=== PATIENT | male | born 1950 | race Caucasian/White ===

== ENCOUNTER 2019-10-31 00:35 | Emergency (ER) | payer MEDICARE ==
--- NOTE | 2019-10-31 01:26 | ER Document Report ---
ED Respiratory Problem - General Chief Complaint: Cough Stated Complaint: COUGH,FEVER Time Seen by Provider: 10/31/19 01:13 Primary Care Provider: EDGARDO TERRELL FNP [NURSE PRACTITIONER] - Follow up as needed Notes: CHIEF COMPLAINT: Cough and fever HPI: 68-year-old diabetic male with history of arthritis who is on prednisone daily for his arthritis presenting for cough and fever. Patient has had a cough for almost 2 weeks. States that he had a negative COVID test 1.5 weeks ago. Patient states that his PCP did put him on Zithromax and he is on day 5 today of that medication. Patient spiked a fever up to 101 tonight at home. States his blood sugar has been elevated throughout the week but he attributes that to his prednisone use. No chest pain. No shortness of breath tonight. ROS: See HPI - all other systems were reviewed and are otherwise negative Constitutional: no fever Eyes: no drainage, no blurred vision ENT: no runny nose, no sore throat Cardiovascular: no chest pain Resp: no SOB, + cough GI: no vomiting, no diarrhea, no abdominal pain : no dysuria Integumentary: no rash Allergy: no hives Musculoskeletal: no extremity pain or swelling Neurological: no numbness/tingling, no weakness MEDICATIONS: I agree with the patient medications as charted by the RN. ALLERGIES: I agree with the allergies as charted by the RN. PAST MEDICAL HISTORY/PAST SURGICAL HISTORY: Reviewed and agree as charted by RN. SOCIAL HISTORY: Reviewed and agree as charted by RN. FAMILY HISTORY: No significant familial comorbid conditions directly related to patient complaint EXAM: Reviewed vital signs as charted by RN. CONSTITUTIONAL: Alert and oriented and responds appropriately to questions. Well-appearing; well-nourished HEAD: Normocephalic; atraumatic EYES: PERRL; Conjunctivae clear, sclerae non-icteric ENT: normal nose; no rhinorrhea; moist mucous membranes; pharynx without lesions noted, no uvula edema or deviation, no tonsillar hypertrophy, phonation normal NECK: Supple without meningismus; non-tender; no cervical lymphadenopathy, no masses CARD: RRR; no murmurs, no clicks, no rubs, no gallops; symmetric distal pulses RESP: Normal chest excursion without splinting or tachypnea; breath sounds clear but decreased in the right posterior base; no wheezes, no rhonchi, no rales, pulse oximetry 95% on room air not hypoxic ABD/GI: Normal bowel sounds; non-distended; soft, non-tender, no rebound, no guarding; no palpable organomegaly or masses. BACK: The back appears normal and is non-tender to palpation, there is no CVA tenderness EXT: Normal ROM in all joints; non-tender to palpation; no cyanosis, no effusions, no edema SKIN: Normal color for age and race; warm; dry; good turgor; no acute lesions noted NEURO: Moves all extremities equally; Motor and sensory function intact PSYCH: The patient's mood and manner are appropriate. Grooming and personal hygiene are appropriate. MDM: 68-year-old male with cough for 2 weeks. Negative COVID test 1.5 weeks ago per the patient he is not sure if he was tested for influenza. Has no chest pain or shortness of breath but states he had a fever of 101 tonight at home despite being on antibiotics. Will obtain chest x-ray basic screening labs including blood culture. Will obtain influenza swab TRAVEL OUTSIDE OF THE [place] IN LAST 30 DAYS: No - Related Data Allergies/Adverse Reactions: No Known Allergies Allergy (Verified 12/12/15 09:51) Home Medications: Metformin 1000mg BID. Methotrexate 2.5 mg 1 tab 6 tabs/wk. Azithromycin 500mg BID 10/25/19. Glipizide 5mg BID. Lisinopril 5mg dailyPrednisone 5mg daily-Arthritis. Pioglitazone 30mg daily. Protonix 40mg daily. Atorvstatin Past Medical History - Social History Smoking Status: Never Smoker Chew tobacco use (# tins/day): No Frequency of alcohol use: None Drug Abuse: None Family History: Reviewed & Not Pertinent Patient has homicidal ideation: No - Past Medical History Cardiac Medical History: Reports: Hx Hypertension Pulmonary Medical History: Reports: Hx COPD Denies: Hx Tuberculosis Endocrine Medical History: Reports: Hx Diabetes Mellitus Type 2 Musculoskeletal Medical History: Reports Hx Arthritis - Immunizations Hx Pneumococcal Vaccination: 06/02/12 Physical Exam - Vital signs Vitals: Temp 99.2 F 10/31/19 00:35 Course - Re-evaluation Re-evalutation: 10/31/19 04:27 I spoke with the patient at length. His lab work does not show acute emergent abnormalities but he has a loculated fluid collection likely pneumonia right lower lobe. He has been on Zithromax for a week and still has subjective fevers to 101 at home will likely need admission for outpatient failure and further work-up and evaluation. I have placed a call to Dr. Anderson the hospitalist and I am awaiting a call back 10/31/19 04:[address] Anderson, hospitalist. discussed labs and imaging. indicates that patient may need cardiothoracic surgery given the loculated fluid c ollection. I did ask if surgery here would be involved in something like that and he indicated that he still would not like to admit the patient and believes patient needs to be transferred. I discussed with the patient, he would prefer us to try transfer to [facility] initially. discussed with Dr. Briceño, Attending 10/31/19 05:[address] Eric Soliz, Hospitalist. At [facility]. He will accept the patient to a floor bed once the rapid COVID is completed here. We did discuss the patient's case and my conversation with our hospitalist here - Vital Signs Vital signs: Temp Pulse Resp BP Pulse Ox 98.4 F 87 20 122/60 92 10/31/19 04:49 10/31/19 04:49 10/31/19 04:49 10/31/19 04:49 10/31/19 04:49 - Laboratory Result Diagrams: 10/31/19 01:45 10/31/19 02:34 Laboratory results interpreted by me: 10/31/19 10/31/19 01:45 02:34 RBC 3.68 L Hgb 11.0 L Hct 32.6 L RDW 16.8 H Lymph % (Auto) 12.6 L Sodium 132.6 L BUN 24 H Glucose 137 H AST 60 H Albumin 3.1 L Discharge - Discharge Clinical Impression: Failure of outpatient treatment Pneumonia Qualifiers: Pneumonia type: due to unspecified organism Laterality: right Lung location: lower lobe of lung Qualified Code(s): J18.9 - Pneumonia, unspecified organism Condition: Fair Disposition: [facility] Referrals: EDGARDO TERRELL FNP [NURSE PRACTITIONER] - Follow up as needed
[2019-10-31 02:07] LABS: ABSOLUTE BASOPHILS # (AUTO) 0.1 10^3/uL (0.0-0.2); ABSOLUTE EOSINOPHILS # (AUTO) 0.1 10^3/uL (0.0-0.6); ABSOLUTE LYMPHOCYTES (AUTO) 1.2 10^3/uL (0.5-4.7); ABSOLUTE MONOCYTES (AUTO) 0.8 10^3/uL (0.1-1.4); ABSOLUTE NEUT (AUTO) 7.4 10^3/uL (1.7-8.2); BASOPHILS % (AUTO) 0.8 % (0-2); EOSINOPHILS % (AUTO) 0.9 % (0-6); HEMATOCRIT 32.6 % (37.9-51.0); LYMPHOCYTES % (AUTO) 12.6 % (13-45); MEAN CORPUSCULAR HGB CONC 33.8 g/dL (32.0-36.0); MEAN CORPUSCULAR VOLUME 89 fl (80-97); MONOCYTES % (AUTO) 8.8 % (3-13); PLATELET COUNT 385 10^3/uL (150-450); RED BLOOD COUNT 3.68 10^6/uL (4.35-5.55); RED CELL DISTRIBUTION WIDTH 16.8 % (11.5-14.0); SEGMENTED NEUTROPHILS % (AUTO) 76.9 % (42-78); TOTAL CELLS COUNTED % (AUTO) 100 %; WHITE BLOOD COUNT 9.6 10^3/uL (4.0-10.5)
[2019-10-31] MEDS ORDERED: CEFTRIAXONE 1 GM/D5W RTU 1 GM/50 ML RTUPB IV ONE (02:10)
--- NOTE | 2019-10-31 02:18 | RADIOLOGY REPORT (SQ) ---
EXAM DESCRIPTION: X-ray single view chest. CLINICAL HISTORY: 68 years Male, cough COMPARISON: 12/12/2015 and 12/08/2014 TECHNIQUE: Single portable x-ray view of the chest performed on 10/31/2019 at 2:03 AM FINDINGS: There is volume loss with airspace consolidation in the right inferior hemithorax which may be due to a combination of pleural fluid, atelectasis and/or pneumonia. The left lung is well-expanded and clear. There is no evidence of a pneumothorax. The cardiac silhouette is normal in size and configuration. The mediastinal contours are normal. No acute osseous abnormality is identified. No focal soft tissue abnormalities are seen. Lines and tubes: None. IMPRESSION: Volume loss with airspace consolidation in the right inferior hemithorax which may be due to a combination of pleural fluid, atelectasis and/or pneumonia.
[2019-10-31 03:11] LABS: ALBUMIN 3.1 g/dL (3.5-5.0); ALKALINE PHOSPHATASE 87 U/L (38-126); ANION GAP 8 (5-19); ASPARTATE AMINO TRANSFERASE 60 U/L (17-59); BILIRUBIN,DIRECT 0.2 mg/dL (0.0-0.4); BILIRUBIN,TOTAL 0.7 mg/dL (0.2-1.3); BLOOD UREA NITROGEN 24 mg/dL (7-20); CALCIUM 9.1 mg/dL (8.4-10.2); CARBON DIOXIDE 24 mmol/L (22-30); CHLORIDE 101 mmol/L (98-107); GLUCOSE 137 mg/dL (75-110); POTASSIUM 4.4 mmol/L (3.6-5.0)
[2019-10-31 03:15] LABS: A TYPE INFLUENZA AG NEGATIVE (NEGATIVE); B INFLUENZA AG NEGATIVE (NEGATIVE)
--- NOTE | 2019-10-31 04:10 | RADIOLOGY REPORT (SQ) ---
s CT CHEST WITH INTRAVENOUS CONTRAST: 10/31/2019 3:06 AM CDT HISTORY: 38-year old patient with concern for right hemithorax infection. TECHNIQUE: Postcontrast CT through the chest was performed. Sagittal and coronal reconstructed images were also obtained and examined. This exam was performed according to our departmental dose-optimization program, which includes automated exposure control, adjustment of the mA and/or KV according to the patient's size and/or use of iterative reconstruction technique. COMPARISON: None available FINDINGS: The heart size is normal in size. No pericardial effusion is seen. Coronary artery calcifications are seen. No significant mediastinal, supraclavicular, or axillary lymphadenopathy is seen. There is trace right mediastinal nodular thickening along the pleural surface. The thoracic aorta is within normal limits of size. The main pulmonary artery is within normal limits of size. The main pulmonary artery is well opacified with contrast. No pneumothorax is seen. There is a loculated moderate right-sided effusion. There are airspace opacities seen at the right lower and middle lobes. There is also mild interlobular septal thickening seen at the right middle lower lobes. There is moderate to severe centrilobular emphysematous changes present. The esophagus is patulous. The bones demonstrate no suspicious lytic or blastic lesion. Multilevel degenerative changes are seen at the thoracic spine. IMPRESSION: There is pleural thickening with loculated fluid seen at the right hemithorax. There are airspace opacities could be secondary to infection or an underlying malignancy. There is interlobular septal thickening at the right lung base which can be seen with edema, infection, or lymphangitic spread of malignancy. .
[2019-10-31 07:47] VITALS: BP 128/61
== END 2019-10-31 07:45 | disposition short-term general hospital (02) ==
LOC: ER 00:35
DX: J18.9 Pneumonia, unspecified organism (principal); J44.0 Chronic obstructive pulmonary disease with (acute) lower respiratory infection; R05 Cough; M19.90 Unspecified osteoarthritis, unspecified site; Z79.52 Long term (current) use of systemic steroids; Z79.84 Long term (current) use of oral hypoglycemic drugs; Z79.899 Other long term (current) drug therapy; Z20.828 Contact with and (suspected) exposure to other viral communicable diseases
CPT/HCPCS: 99285; 96365; 36415; 87040; 82962; 85025; 80053; 87804; 71045; 71260; U0003; J0696; 87635

== ENCOUNTER → 2020-03-29 | Outpatient (CLI) | payer MEDICARE ==
--- NOTE | 2020-03-29 11:35 | RADIOLOGY REPORT (SQ) ---
EXAM DESCRIPTION: MRI HEAD COMBO IMAGES COMPLETED DATE/TIME: 03/29/2020 10:21 am REASON FOR STUDY: C34.90 MALIGNANT NEOPLASM OF UNSP PART OF UNSP BRONCHUS OR LUNG C34.90 MALIGNANT NEOPLASM OF UNSP PART OF UNSP BRONCHUS OR L COMPARISON: None. TECHNIQUE: Multiplanar imaging includes noncontrasted T1, T2, FLAIR, and Diffusion with ADC map seq uences. Contrast enhanced T1 images. Images stored on PACS. CONTRAST TYPE AND DOSE: 10 mL Prohance. RENAL FUNCTION: Not indicated. ACR Type II contrast agent associated with few, if any, unconfounded cases of NSF LIMITATIONS: None. FINDINGS: ANATOMY: No anomalies. Normal vascular flow voids. Pituitary fossa normal. CSF SPACES: Normal size and contour. No hemorrhage. CEREBRUM: A few high-signal intensity lesions scattered throughout the white matter on FLAIR imaging with distribution suggesting chronic microvascular ischemic change. Sulci and gyri normal in size and contour. No evidence of hemorrhage, mass or extraaxial fluid collection. No enhancing lesions. Ther e is a small venous angioma noted in the inferior right aspect of the cerebellum. POSTERIOR FOSSA: No signal alteration. No hemorrhage. No edema, masses or mass effect. Internal audit ory canals, cerebello-pontine angles, mastoids normal. DIFFUSION: Negative for acute or subacute infarction. ORBITS: No masses. Globes normal. PARANASAL SINUSES: No fluid levels. Mucosa normal. 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 IMPRESSION: NO ENHANCING LESIONS. MINIMAL MICROVASCULAR ISCHEMIC CHANGE. OTHERWISE NORMAL STUDY. EVIDENCE OF ACUTE STROKE: NO. TECHNICAL DOCUMENTATION: JOB ID: [id number] 2010 [employer]- All Rights Reserved Reading location - IP/workstation name: [email or web address]
== END ==
LOC: RAD 09:15
PROVIDERS: ATTEND Internal Medicine Hematology & Oncology
DX: C34.90 Malignant neoplasm of unspecified part of unspecified bronchus or lung (principal)
CPT/HCPCS: 82565; 70553; A9576

== ENCOUNTER 2020-04-03 12:51 | Emergency (ER) | payer MEDICARE ==
[2020-04-03] MEDS ORDERED: NORMAL SALINE 1000 ML 1,000 ML IV ONE ×2 (13:03→15:17)
--- NOTE | 2020-04-03 13:03 | ER Document Report ---
ED Medical Screen (RME) - General Chief Complaint: Weakness Stated Complaint: WEAKNESS Time Seen by Provider: 04/03/20 12:56 Primary Care Provider: PRIYANK WALKER PA [Primary Care Provider] - Follow up as needed Notes: 69-year-old male presents to ED for complaint of severe abdominal pain. He states has been going on for a while but is getting much worse. He has no appetite and has not been able to eat anything today. He has been diagnosed with cancer but there is post to determine whether his lung or liver because he does have tumors in both areas. He was diagnosed in February 2020. He states he is supposed to get a port on Wednesday and he goes to Dr. Colunga who is supposed to let him know where his cancer is and what his treatment will be. I have greeted and performed a rapid initial assessment of this patient. A comprehensive ED assessment and evaluation of the patient, analysis of test results and completion of medical decision making process will be conducted by an additional ED providers. TRAVEL OUTSIDE OF THE [place] IN LAST 30 DAYS: No - Related Data Allergies/Adverse Reactions: No Known Allergies Allergy (Verified 12/12/15 09:51) Past Medical History - General Information source: Patient - Social History Cigarette use (# per day): No Frequency of alcohol use: None Drug Abuse: None Lives with: Family Family history: Reviewed & Not Pertinent - Past Medical History Cardiac Medical History: Reports: Hx Hypertension, Hx Peripheral Vascular Disease Pulmonary Medical History: Reports: Hx COPD Denies: Hx Tuberculosis EENT Medical History: Reports: None Neurological Medical History: Reports: None Endocrine Medical History: Reports: Hx Diabetes Mellitus Type 2 Renal/ Medical History: Reports: None Malignancy Medical History: Reports Other - unsure in liver and lungs GI Medical History: Reports: Hx Colonoscopy Musculoskeltal Medical History: Reports Hx Arthritis, Reports Hx Musculoskeletal Trauma Skin Medical History: Reports None Psychiatric Medical History: Reports: None Traumatic Medical History: Reports: Hx Fractures Infectious Medical History: Reports: None Past Surgical History: Reports: Hx Vascular Surgery - stents - Immunizations Immunizations up to date: No Hx Diphtheria, Pertussis, Tetanus Vaccination: No Physical Exam - Vital signs Vitals: Temp Pulse Resp BP Pulse Ox 97.4 F 111 H 20 119/66 98 04/03/20 12:57 04/03/20 12:57 04/03/20 12:57 04/03/20 12:57 04/03/20 12:57 Course - Vital Signs Vital signs: Temp Pulse Resp BP Pulse Ox 97.4 F 111 H 20 119/66 98 04/03/20 12:57 04/03/20 12:57 04/03/20 12:57 04/03/20 12:57 04/03/20 12:57 Doctor's Discharge - Discharge Referrals: PRIYANK WALKER PA [Primary Care Provider] - Follow up as needed
[2020-04-03 13:28] LABS: ABSOLUTE BASOPHILS # (AUTO) 0.1 10^3/uL (0.0-0.2); ABSOLUTE LYMPHOCYTES (AUTO) 1.3 10^3/uL (0.5-4.7); ABSOLUTE MONOCYTES (AUTO) 0.8 10^3/uL (0.1-1.4); ABSOLUTE NEUT (AUTO) 12.9 10^3/uL (1.7-8.2); BASOPHILS % (AUTO) 0.8 % (0-2); EOSINOPHILS % (AUTO) 0.1 % (0-6); HEMATOCRIT 39.4 % (37.9-51.0); LYMPHOCYTES % (AUTO) 8.8 % (13-45); MEAN CORPUSCULAR HEMOGLOBIN 27.1 pg (27.0-33.4); MEAN CORPUSCULAR VOLUME 82 fl (80-97); MONOCYTES % (AUTO) 5.5 % (3-13); PLATELET COUNT 494 10^3/uL (150-450); RED CELL DISTRIBUTION WIDTH 18.6 % (11.5-14.0); SEGMENTED NEUTROPHILS % (AUTO) 84.8 % (42-78); TOTAL CELLS COUNTED % (AUTO) 100 %; WHITE BLOOD COUNT 15.2 10^3/uL (4.0-10.5)
[2020-04-03 13:50] LABS: ALBUMIN 2.9 g/dL (3.5-5.0); ALKALINE PHOSPHATASE 110 U/L (38-126); ANION GAP 9 (5-19); ASPARTATE AMINO TRANSFERASE 14 U/L (17-59); BILIRUBIN,DIRECT 0.2 mg/dL (0.0-0.4); BILIRUBIN,TOTAL 0.7 mg/dL (0.2-1.3); BLOOD UREA NITROGEN 36 mg/dL (7-20); CALCIUM 9.8 mg/dL (8.4-10.2); CARBON DIOXIDE 28 mmol/L (22-30); CHLORIDE 98 mmol/L (98-107); GLUCOSE 134 mg/dL (75-110); PHOSPHORUS 3.9 mg/dL (2.5-4.5); POTASSIUM 4.5 mmol/L (3.6-5.0); TOTAL PROTEIN 6.3 g/dL (6.3-8.2)
--- NOTE | 2020-04-03 14:52 | ER Document Report ---
ED Dizziness/Weakness - General Chief Complaint: Weakness Stated Complaint: WEAKNESS Time Seen by Provider: 04/03/20 12:56 Primary Care Provider: PRIYANK WALKER PA [Primary Care Provider] - Follow up as needed Mode of Arrival: Ambulatory Information source: Patient Notes: PRIOR ED NOTES Emergency Provider: SAADDAMARIS Cottrellpelon Number: [id number] Date: 10/31/19 01:25 Initialization Date: 10/31/19 01:25 ED Respiratory Problem - General Chief Complaint: Cough Stated Complaint: COUGH,FEVER Time Seen by Provider: 10/31/19 01:13 Primary Care Provider: EDGARDO TERRELL FNP [NURSE PRACTITIONER] - Follow up as needed Notes: CHIEF COMPLAINT: Cough and fever HPI: 68-year-old diabetic male with history of arthritis who is on prednisone daily for his arthritis presenting for cough and fever. Patient has had a cough for almost 2 weeks. States that he had a negative COVID test 1.5 weeks ago. Patient states that his PCP did put him on Zithromax and he is on day 5 today of that medication. Patient spiked a fever up to 101 tonight at home. States his blood sugar has been elevated throughout the week but he attributes that to his prednisone use. No chest pain. No shortness of breath tonight. Please note this patient was sent to [facility] because of this ER visit with CT revealing right lower lobe and right diaphragmatic infiltrate question of infection versus malignancy. 04/03/20 15:04 - ED Nursing Note [facility]: [id number] : 1950 Patient Age: 69 pt reports poor appetite x 1 month. states he has been eating but getting less all the time. reports abdominal pain. pt reports he has cancer but doesnt know what type until tomorrow. family reports he just had mri done this past wednesday. reports hx of pneumonia in november. reports he was seen here and shipped to [facility]. states area on the lung was drained. 02/26 called on the phone and told him he was dx with lung ca. reports 40lb weight loss. pt reports he has noted the pas t2 days his abdomen swelling. pt reports occasional burning with urination. states hx of constipation. pt is alert and oriented. resp are even and unlabored. speaking in full sentences. Initialized on 04/03/20 15:04 - END OF NOTE ED Medical Screen (Les yi)) - General Chief Complaint: Weakness Stated Complaint: WEAKNESS Time Seen by Provider: 04/03/20 12:56 Primary Care Provider: PRIYANK WALKER PA [Primary Care Provider] - Follow up as needed Notes: 69-year-old male presents to ED for complaint of severe abdominal pain. He states has been going on for a while but is getting much worse. He has no appetite and has not been able to eat anything today. He has been diagnosed with cancer but there is post to determine whether his lung or liver because he does have tumors in both areas. He was diagnosed in February 2020. He states he is supposed to get a port on Wednesday and he goes to Dr. Colunga who is supposed to let him know where his cancer is and what his treatment will be. MY NOTES 69-year-old male arrives with chief complaint of severe abdominal pain and poor appetite. Please note patient saw Dr. Fountain on 29 March this month. Chest x- ray was done. Patient arrives today complaining of severe lower abdominal pain and constipation. Patient reports he arrives with his Radha who is good historian as well. Patient reports a few months ago he was seen here and sent to [facility] and had a needle placed in his back to remove a lot of fluid from his right lower chest. They called him on 26 February to advise he has lung cancer. He has been followed by Dr. Fountain since this time. Patient reports and late September he had some severe constipation and had to have disimpaction in [facility]. Patient reports he is an ex-smoker and used to smoke around 1 pack of Carter's daily since he was a teenager and quit more than 20 years ago. He denies any alcohol use. He reports occasionally he would have constipation but no one in the family has any colon cancer or liver cancer or lung cancer. Patient reports he has had 40 pound weight loss for the last 4 months. He was weighed at Dr. Kaufman's office weighing 142 and today weighs 135. "Earlier this year he weighed 180 pounds reports he had this weight all his life." I spoke with Dr. Elizabeth at 1536 and he advises the patient has stage IV squamous cell lung cancer and just recently had a PET revealing liver mets. Patient also has a negative MRI of brain recently. His PET also showed a bone infiltrate into his manubrium. Patient does not have a port placed yet the patient says he is supposed to get this done next Wednesday. Patient goes by" AMILCAR Duran". TRAVEL OUTSIDE OF THE [place] IN LAST 30 DAYS: No - HPI Patient complains to provider of: Weakness - Related Data Allergies/Adverse Reactions: No Known Allergies Allergy (Verified 12/12/15 09:51) Past Medical History - General Information source: Patient - Social History Smoking Status: Former Smoker Cigarette use (# per day): No Chew tobacco use (# tins/day): No Smoking Education Provided: No Frequency of alcohol use: None Drug Abuse: None Lives with: Family Family History: Reviewed & Not Pertinent Patient has suicidal ideation: No Patient has homicidal ideation: No - Past Medical History Cardiac Medical History: Reports: Hx Hypertension, Hx Peripheral Vascular Disease Pulmonary Medical History: Reports: Hx COPD Denies: Hx Tuberculosis EENT Medical History: Reports: None Neurological Medical History: Reports: None Endocrine Medical History: Reports: Hx Diabetes Mellitus Type 2 Renal/ Medical History: Reports: None Malignancy Medical History: Reports Other - unsure in liver and lungs GI Medical History: Reports: Hx Colonoscopy Musculoskeletal Medical History: Reports Hx Arthritis, Reports Hx Musculoskeletal Trauma Skin Medical History: Reports None Psychiatric Medical History: Reports: None Traumatic Medical History: Reports: Hx Fractures Infectious Medical History: Reports: None Past Surgical History: Reports: Hx Vascular Surgery - stents - Immunizations Immunizations up to date: No Hx Diphtheria, Pertussis, Tetanus Vaccination: No Hx Pneumococcal Vaccination: 06/02/12 Review of Systems - Review of Systems Constitutional: See HPI, Malaise, Weakness, Weight loss, Recent illness EENT: No symptoms reported Cardiovascular: No symptoms reported Respiratory: No symptoms reported Gastrointestinal: See HPI, Abdomen distended, Abdominal pain, Constipation, Poor appetite Genitourinary: No symptoms reported Male Genitourinary: No symptoms reported Musculoskeletal: No symptoms reported Skin: No symptoms reported Hematologic/Lymphatic: No symptoms reported Neurological/Psychological: No symptoms reported Physical Exam - Vital signs Vitals: Temp Pulse Resp BP Pulse Ox 97.4 F 111 H 20 119/66 98 04/03/20 12:57 04/03/20 12:57 04/03/20 12:57 04/03/20 12:57 04/03/20 12:57 Interpretation: Normal, Tachycardic - General General appearance: Appears well, Alert - HEENT Head: Normocephalic, Atraumatic Eyes: Normal Pupils: PERRL - Respiratory Respiratory status: No respiratory distress Chest status: Nontender Breath sounds: Normal Chest palpation: Normal - Cardiovascular Rhythm: Tachycardia Heart sounds: Normal auscultation Murmur: No - Abdominal Inspection: Normal Distension: Distended Bowel sounds: Hypoactive Tenderness: Tender - Periumbilical and mid abdomen pain Organomegaly: No organomegaly - Rectal Prostate: Other - deferred - Genitourinary Scrotum: Other - deferred - Back Back: Normal, Nontender - Extremities General upper extremity: Normal inspection, Nontender, Normal color, Normal ROM, Normal temperature General lower extremity: Normal inspection, Nontender, Normal color, Normal ROM, Normal temperature, Normal weight bearing. No: Kolby's sign - Neurological Neuro grossly intact: Yes Cognition: Normal Orientation: AAOx4 Jose Coma Scale Eye Opening: Spontaneous [place] Coma Scale Verbal: Oriented [place] Coma Scale Motor: Obeys Commands Jose Coma Scale Total: 15 Speech: Normal Motor strength normal: LUE, RUE, LLE, RLE Sensory: Normal - Psychological Associated symptoms: Normal affect, Normal mood - Skin Skin Temperature: Warm Skin Moisture: Dry Skin Color: Normal Course - Vital Signs Vital signs: Temp Pulse Resp BP Pulse Ox 98.0 F 88 16 124/69 95 04/03/20 18:41 04/03/20 18:41 04/03/20 18:41 04/03/20 18:41 04/03/20 18:41 - Laboratory Result Diagrams: 04/03/20 13:18 04/03/20 13:18 Laboratory results interpreted by me: 04/03/20 04/03/20 04/03/20 13:18 13:18 14:54 WBC 15.2 H Hgb 13.0 L RDW 18.6 H Plt Count 494 H Lymph % (Auto) 8.8 L Absolute Neuts (auto) 12.9 H Seg Neutrophils % 84.8 H Sodium 134.9 L BUN 36 H Glucose 134 H POC Glucose 134 H AST 14 L Albumin 2.9 L Urine Glucose (UA) 04/03/20 20:05 WBC Hgb RDW Plt Count Lymph % (Auto) Absolute Neuts (auto) Seg Neutrophils % Sodium BUN Glucose POC Glucose AST Albumin Urine Glucose (UA) >=500 H - Diagnostic Test Radiology reviewed: Reports reviewed - Chest x-ray with a right lower lobe pleural effusion/infiltrate; CT abdomen pelvis reveals ascites and peritoneal implants with ileus and air-fluid levels and stool throughout the colon. I called Dr. Elizabeth about this case and he advised that he will follow-up with his case. Discharge - Discharge Clinical Impression: Cancer, metastatic to liver, Ascites of liver, Weight loss, abnormal Lung cancer Qualifiers: Laterality: right Lung location: lower lobe of lung Qualified Code(s): C34.31 - Malignant neoplasm of lower lobe, right bronchus or lung Constipation Qualifiers: Constipation type: unspecified constipation type Qualified Code(s): K59.00 - Constipation, unspecified Condition: Stable Disposition: HOME, SELF-CARE Additional Instructions: Follow-up with Dr. Elizabeth and return to ER if symptoms persist or worsen.; Mix 2 scoops ice cream, 1 teaspoon of carnation instant milk or malted milk powdered, mixed with 1 teaspoon of peanut butter and eat daily to help increase caloric intake. Take Periactin and Marinol as needed for appetite. Also take Zofran for nausea. Prescriptions: Amoxicillin/Potassium Clav [Augmentin 875-125 Tablet] 1 tab PO BID #14 tab Dronabinol [Marinol 2.5 mg Capsule] 2.5 mg PO BID #60 capsule Cyproheptadine HCl [Periactin 4 Mg Tablet] 4 mg PO HSP PRN #30 tablet PRN Reason: Referrals: RPIYANK WALKER PA [Primary Care Provider] - Follow up as needed
[2020-04-03] MEDS ORDERED: HYDROMORPHONE HCL INJ/PF 2 MG/ML AMPULE IV ONE (16:17)
--- NOTE | 2020-04-03 16:17 | RADIOLOGY REPORT (SQ) ---
EXAM DESCRIPTION: CHEST SINGLE VIEW IMAGES COMPLETED DATE/TIME: 04/03/2020 4:07 pm REASON FOR STUDY: lung ca with abd pain COMPARISON: 10/31/2019 EXAM PARAMETERS: NUMBER OF VIEWS: One view. TECHNIQUE: Single frontal radiographic view of the chest acquired. RADIATION DOSE: NA LIMITATIONS: None. FINDINGS: LUNGS AND PLEURA: Small right pleural effusion underlying airspace disease improved from p rior exam. No pneumothorax. MEDIASTINUM AND HILAR STRUCTURES: No masses. Contour normal. HEART AND VASCULAR STRUCTURES: Heart normal in size. Normal vasculature. BONES: No acute findings. HARDWARE: None in the chest. OTHER: No other significant finding. IMPRESSION: Small right pleural effusion with underlying airspace disease either atelectasis or pneu monia. Findings are improved when compared to prior film. TECHNICAL DOCUMENTATION: JOB ID: [id number] 2010 [employer]- All Rights Reserved Reading location - IP/workstation name: [email or web address]
--- NOTE | 2020-04-03 16:39 | RADIOLOGY REPORT (SQ) ---
EXAM DESCRIPTION: CT ABD/PELVIS WITH IV ONLY IMAGES COMPLETED DATE/TIME: 04/03/2020 4:27 pm REASON FOR STUDY: pain abd COMPARISON: CT chest dated 10/31/2019 TECHNIQUE: CT scan of the abdomen and pelvis performed using helical scanning technique with dynamic intravenous contrast injection. No oral contrast. Images reviewed with lung, soft tissue, and bone windows. Reconstructed coronal and sagittal MPR images reviewed. Delayed images for evaluation of the urinary system also acquired. All images stored on PACS. All CT scanners at this facility use dose modulation, iterative reconstruction, and/or weight based d osing when appropriate to reduce radiation dose to as low as reasonably achievable (ALARA). [facility]: Dose Right [facility]: CareDose [facility]: Dose Right [facility]: Teradose 4D [facility]: GlySure CONTRAST TYPE AND DOSE: contrast/concentration: Isovue 350.00 mmol/ml; Total Contrast Delivered: 79. 0 ml; Total Saline Delivered: 54.9 ml RENAL FUNCTION: BUN 36, creatinine 1.03 RADIATION DOSE: CT Rad equipment meets quality standard of care and radiation dose reduction techniq ues were employed. CTDIvol: NaN - NaN mGy. DLP: 0 mGy-cm.. LIMITATIONS: None. FINDINGS: LOWER CHEST: Bilateral pleural effusions partially loculated on the right. Minimal basila r airspace disease either atelectasis or pneumonia. Right-sided effusion is smaller when compared to prior CT chest. LIVER: Normal size. No masses. No dilated ducts. SPLEEN: Normal size. No focal lesions. PANCREAS: No masses. No significant calcifications. No adjacent inflammation or peripancreatic fluid collections. Pancreatic duct not dilated. GALLBLADDER: No identified stones by CT criteria. No inflammatory changes to suggest cholecystitis. ADRENAL GLANDS: No significant masses or asymmetry. RIGHT KIDNEY AND URETER: No solid masses. No significant calcifications. No hydronephrosis or hyd roureter. LEFT KIDNEY AND URETER: No solid masses. No significant calcifications. No hydronephrosis or hydr oureter. AORTA AND VESSELS: No aneurysm. No dissection. Renal arteries, SMA, celiac without stenosis. RETROPERITONEUM: No retroperitoneal adenopathy, hemorrhage or masses. BOWEL AND PERITONEAL CAVITY: Small volume ascites. Possible peritoneal implants with soft tissue att enuation along the anterior abdominal wall. Infectious or inflammatory process is thought to be less likely. Moderate amount of stool throughout the colon. There is some some mildly distended loops o f small bowel in the lower abdomen pelvis. No evidence of mechanical obstruction. Mild ileus cannot be excluded. APPENDIX: Normal. PELVIS: No mass. No free fluid. Normal bladder. ABDOMINAL WALL: No masses. No hernias. BONES: No significant or acute findings. OTHER: No other significant finding. IMPRESSION: Small volume ascites. Ill-defined areas of soft tissue attenuation along the anterior a bdominal wall suspicious for peritoneal implants. This could be better assessed with oral contrast o n board. Scattered air-fluid levels within mildly prominent small bowel most likely representing ile us. Modest stool throughout the colon. TECHNICAL DOCUMENTATION: JOB ID: [id number] Quality ID # [id number]: Final reports with documentation of one or more dose reduction techniques (e.g., Au tomated exposure control, adjustment of the mA and/or kV according to patient size, use of iterative reconstruction technique) 2010 [employer]- All Rights Reserved Reading location - IP/workstation name: [email or web address]
[2020-04-03] MEDS ORDERED: LACTULOSE SYRUP 20 GM/30 ML UDCUP PO ONE (18:34)
[2020-04-03] MEDS ORDERED: PIPERACILLIN/TAZOBACTAM 3.375 GM VIAL IV ONE (18:39)
[2020-04-03] MEDS ORDERED: DRONABINOL 2.5 MG CAPSULE PO ONE (18:53)
[2020-04-03] MEDS ORDERED: CYPROHEPTADINE HCL 4 MG TABLET PO ONE (18:54)
[2020-04-03] MEDS ORDERED: ONDANSETRON HCL INJ/PF 4 MG/2 ML SDV IV ONE (18:55)
[2020-04-03 20:21] LABS: APPEARANCE,URINE CLEAR; BILIRUBIN,URINE NEGATIVE (NEGATIVE); COLOR,URINE YELLOW; GLUCOSE, URINE >=500 mg/dL (NEGATIVE); KETONES,URINE NEGATIVE (NEGATIVE); LEUKOCYTE ESTERASE,URINE NEGATIVE (NEGATIVE); NITRITE,URINE NEGATIVE (NEGATIVE); PROTEIN,URINE NEGATIVE (NEGATIVE); URINE SPECIFIC GRAVITY 1.046; UROBILINOGEN,URINE NEGATIVE mg/dL (<2.0)
[2020-04-03] MEDS ORDERED: KETOROLAC TROMETHAMINE INJ/PF 30 MG/1 ML SDV IV ONE (21:16)
[2020-04-03 22:00] VITALS: BP 124/66
== END 2020-04-03 21:50 | disposition home or self-care (01) ==
LOC: ER 12:51
DX: C34.31 Malignant neoplasm of lower lobe, right bronchus or lung (principal); C78.7 Secondary malignant neoplasm of liver and intrahepatic bile duct; R18.8 Other ascites; R63.4 Abnormal weight loss; R53.1 Weakness; R50.9 Fever, unspecified; R05 Cough; R10.9 Unspecified abdominal pain; R30.9 Painful micturition, unspecified; R53.81 Other malaise; Z87.891 Personal history of nicotine dependence; I10 Essential (primary) hypertension; J44.9 Chronic obstructive pulmonary disease, unspecified; E11.9 Type 2 diabetes mellitus without complications
CPT/HCPCS: 99285; 96361; 96375; 96365; 36415; 82962; 83735; 84100; 85025; 80053; 81001; 71045; 74177; A9270 ×3; J1885; J1170; J2405; J7030; J2543; J3490

== ENCOUNTER 2020-04-04 13:55 | Inpatient (IN) | payer MEDICARE ==
[2020-04-04] MEDS ORDERED: NORMAL SALINE 1000 ML 1,000 ML IV ONE (14:17)
--- NOTE | 2020-04-04 14:18 | ER Document Report ---
ED Medical Screen (RME) - General Chief Complaint: Weakness Stated Complaint: WEAKNESS Time Seen by Provider: 04/04/20 14:11 Primary Care Provider: PRIYANK WALKER PA [Primary Care Provider] - Follow up as needed Mode of Arrival: Wheelchair Information source: Patient Notes: 69-year-old male presented to ED for complaint of abdominal pain. He was sent over by Dr. Colunga from oncology for admission for abdominal pain from cancer Was seen last night and he decided that he would rather go home if he could use the medicines at home. When he went in to see the oncologist this morning he was so weak that he could not stand up and care for himself and saw the oncologist said that he should come into the hospital and be admitted. He states that they sent him over here because they cannot have a bed at this time and he would need to go to the to the emergency room in order to be admitted. I have greeted and performed a rapid initial assessment of this patient. A comprehensive ED assessment and evaluation of the patient, analysis of test results and completion of medical decision making process will be conducted by an additional ED providers. TRAVEL OUTSIDE OF THE [place] IN LAST 30 DAYS: No - Related Data Allergies/Adverse Reactions: No Known Allergies Allergy (Verified 12/12/15 09:51) Past Medical History - Social History Family history: Reviewed & Not Pertinent - Past Medical History Cardiac Medical History: Reports: Hx Hypertension, Hx Peripheral Vascular Disease Pulmonary Medical History: Reports: Hx COPD Denies: Hx Tuberculosis Endocrine Medical History: Reports: Hx Diabetes Mellitus Type 2 GI Medical History: Reports: Hx Colonoscopy Musculoskeltal Medical History: Reports Hx Arthritis, Reports Hx Musculoskeletal Trauma Traumatic Medical History: Reports: Hx Fractures Past Surgical History: Reports: Hx Vascular Surgery - stents - Immunizations Immunizations up to date: No Hx Diphtheria, Pertussis, Tetanus Vaccination: No Physical Exam - Vital signs Vitals: Temp Pulse Resp BP Pulse Ox 97.5 F 40 L 18 104/59 L 86 L 04/04/20 14:04/04/20 14:04/04/20 14:04/04/20 14:04/04/20 14:09 Course - Vital Signs Vital signs: Temp Pulse Resp BP Pulse Ox 97.5 F 40 L 18 104/59 L 86 L 04/04/20 14:04/04/20 14:09 04/04/20 14:09 04/04/20 14:09 04/04/20 14:09 Doctor's Discharge - Discharge Referrals: PRIYANK WALKER PA [Primary Care Provider] - Follow up as needed
[2020-04-04] MEDS ORDERED: HYDROMORPHONE HCL INJ/PF 2 MG/ML AMPULE IV ONE (14:47)
[2020-04-04] MEDS ORDERED: POLYETHYLENE GLYCOL 3350 POWDER 17 GM/1 PACKET PO ONE (14:56)
--- NOTE | 2020-04-04 14:56 | ER Document Report ---
ED General - General Chief Complaint: Weakness Stated Complaint: WEAKNESS Time Seen by Provider: 04/04/20 14:11 Primary Care Provider: PRIYANK WALKER PA [Primary Care Provider] - Follow up as needed Mode of Arrival: Wheelchair Notes: 6-year-old male with known lung cancer pre- chemotherapy, with peritoneal implants and ascites diagnosed on CT yesterday presents with abdominal pain. He was here yesterday for leona pain did not want to be admitted and went home, and has still been having worsening pain. He saw Dr. Fountain in the office today he wants him admitted for a "cleanout my bowels" as well as pain control prior to starting chemo as well as port placement It is generalized worse with movement nonradiating and with movement of nausea but no vomiting. Has not been eating much. TRAVEL OUTSIDE OF THE [place] IN LAST 30 DAYS: No - Related Data Allergies/Adverse Reactions: No Known Allergies Allergy (Verified 12/12/15 09:51) Past Medical History - General Information source: Patient - Social History Smoking Status: Former Smoker Family History: Reviewed & Not Pertinent - Past Medical History Cardiac Medical History: Reports: Hx Hypertension, Hx Peripheral Vascular Disease Pulmonary Medical History: Reports: Hx COPD Denies: Hx Tuberculosis Endocrine Medical History: Reports: Hx Diabetes Mellitus Type 2 GI Medical History: Reports: Hx Colonoscopy Musculoskeletal Medical History: Reports Hx Arthritis, Reports Hx Musculoskeletal Trauma Traumatic Medical History: Reports: Hx Fractures Past Surgical History: Reports: Hx Vascular Surgery - stents - Immunizations Immunizations up to date: No Hx Diphtheria, Pertussis, Tetanus Vaccination: No Hx Pneumococcal Vaccination: 06/02/12 Review of Systems - Review of Systems Notes: REVIEW OF SYSTEMS GEN: D generalized weakness decreased oral intake ENT: Denies sore throat, nasal discharge, ear pain EYES: Denies blurry vision, eye pain, discharge CV: Denies chest pain, palpitations, edema RESP: Denies cough, shortness of breath, wheezing GI: Pain and distention MSK: Denies joint pain/swelling, edema, SKIN: Denies rash, skin lesions LYMPH: Denies swollen glands/lymph nodes NEURO: Denies headache, focal weakness or numbness, dizziness PSYCH: Denies depression, suicidal or homicidal ideation PHYSICAL EXAMINATION General: Weak Head: Atraumatic, normocephalic ENT: Mouth normal, oropharynx moist, no exudates or tonsillar enlargement Eyes: Conjunctiva normal, pupils equal, lids normal Neck: No JVD, supple, no guarding CVS: Normal rate, regular rhythm, no murmurs Resp: No resp distress, equal and normal breath sounds bilaterally GI: Distention with no real tenderness. Ext: No deformities, no edema, normal range of motion in upper and lower ext Back: No CVA or midline TTP Skin: No rash, warm Lymphatic: No lymphadeopathy noted Neuro: Awake, alert. Face symmetric. GCS 15. Physical Exam - Vital signs Vitals: Temp Pulse Resp BP Pulse Ox 97.5 F 98 18 104/59 L 86 L 04/04/20 14:09 04/04/20 14:09 04/04/20 14:09 04/04/20 14:09 04/04/20 14:09 Course - Re-evaluation Re-evalutation: 04/04/20 14:55 Weakness and abdominal pain previous work-up we will repeat labs give pain meds and admit per Dr. Fountain's instructions He had antibiotics prescribed for a persistent - Vital Signs Vital signs: Temp Pulse Resp BP Pulse Ox 97.5 F 98 18 104/59 L 100 04/04/20 14:09 04/04/20 14:09 04/04/20 14:09 04/04/20 14:09 04/04/20 14:40 Discharge - Discharge Clinical Impression: Cancer, metastatic to liver Constipation Qualifiers: Constipation type: unspecified constipation type Qualified Code(s): K59.00 - Constipation, unspecified Condition: Good Disposition: ADMITTED INPATIENT Admitting Provider: Evi (Hospitalist) Unit Admitted: Medical Floor Referrals: PRIYANK WALKER PA [Primary Care Provider] - Follow up as needed
--- NOTE | 2020-04-04 15:15 | RADIOLOGY REPORT (SQ) ---
EXAM DESCRIPTION: CHEST 2 VIEWS IMAGES COMPLETED DATE/TIME: 04/04/2020 1:51 pm REASON FOR STUDY: abd pain with lung and liver mets COMPARISON: 04/03/2020. CT chest 10/31/2019. EXAM PARAMETERS: NUMBER OF VIEWS: two views TECHNIQUE: Digital Frontal and Lateral radiographic views of the chest acquired. RADIATION DOSE: NA LIMITATIONS: none FINDINGS: LUNGS AND PLEURA: Chronic loculated right pleural effusion is stable from prior CT. He wi ll consolidation. Left lung is clear. Lungs are hyperinflated. No pneumothorax. MEDIASTINUM AND HILAR STRUCTURES: No masses or contour abnormalities. HEART AND VASCULAR STRUCTURES: Heart normal size. No evidence for failure. BONES: No acute findings. HARDWARE: None in the chest. OTHER: No other significant finding. IMPRESSION: Chronic loculated right pleural effusion with compressive atelectasis of the right lung base, stable. No acute cardiopulmonary disease. TECHNICAL DOCUMENTATION: JOB ID: [id number] [employer]- All Rights Reserved Reading location - IP/workstation name: [email or web address]
[2020-04-04] MEDS ORDERED: MAGNESIUM HYDROXIDE SUSP 30 ML UDCUP PO PRN (16:07)
[2020-04-04] MEDS ORDERED: IPRATROPIUM/ALBUTEROL 0.5-2.5 MG/3 ML AMPUL NEB PRN (16:07)
[2020-04-04] MEDS ORDERED: ZOLPIDEM TARTRATE 5 MG TABLET PO PRN (16:07)
[2020-04-04] MEDS: ONDANSETRON HCL INJ/PF 4 MG/2 ML SDV IV PRN (16:24)
--- NOTE | 2020-04-04 16:38 | PDOC H&P ---
History of Present Illness Admission Date/PCP: 04/04/20 16:04 RIKA MILLAN Patient complains of: Patient presented with diminished oral intake as well as generalized malaise. He was evaluated and sent home and he followed up with oncologist today and after evaluation he was felt that patient should come to the hospital for further treatment. History of Present Illness: HOLLI VALDEZ JR is a 69 year old male Patient was seen in the emergency room yesterday for generalized weakness, diminished oral intake as well as generalized malaise. He was evaluated and sent home and he followed up with oncologist today and after evaluation he was felt that patient should come to the hospital for further treatment. Dr. Colunga actually called me to admit the patient to the hospital as a direct admission but he was diverted to the ER for unclear reasons. Patient had presented to our office with weakness and he had a bout of vomiting while in the ER otherwise th ey denied any previous vomiting. He has not had bowel movement for at least 3 days and prior to that it was very minimal. I am currently awaiting his blood count but when he was seen yesterday in the ER his white count was 15.2 otherwise his other labs were pretty acceptable yesterday including a urinalysis that was benign except for glucosuria. Patient was recently diagnosed with stage IV lung cancer. He is yet to start treatment. In fact he was at Dr. Hernandez office today for evaluation to start management of his cancer. He apparently had been hypotensive in his office but after giving some fluids it appears his blood pressure improved and at the time of my exam his systolic blood pressure in the ER was 125. CODE STATUS was discussed with patient and his and they affirmed that he is a full code Past Medical History Cardiac Medical History: Reports: Hypertension, Peripheral Vascular Disease Pulmonary Medical History: Reports: Chronic Obstructive Pulmonary Disease (COPD) Denies: Tuberculosis Endocrine Medical History: Reports: Diabetes Mellitus Type 2 Musculoskeltal Medical History: Reports: Arthritis Past Surgical History Past Surgical History: Reports: Vascular Surgery - stents Social History Information Source: Patient Smoking Status: Former Smoker Hx Recreational Drug Use: No Hx Prescription Drug Abuse: No - Advance Directive Resuscitation Status: Full Code Family History Family History: Reviewed & Not Pertinent Parental Family History Reviewed: No Children Family History Reviewed: No Sibling(s) Family History Reviewed.: No Medication/Allergy Home Medications: Lisinopril [Prinivil 10 mg Tablet] 2.5 mg PO DAILY 06/02/12 Prednisone 5 mg PO DAILY 06/06/12 Ascorbic Acid [Vitamin C 500 mg Tablet] 500 mg PO DAILY 04/04/20 Aspirin [Adult Low Dose Aspirin EC] 81 mg PO DAILY 04/04/20 Atorvastatin Calcium [Lipitor 20 mg Tablet] 20 mg PO QHS 04/04/20 Cholecalciferol (Vitamin D3) [Vitamin D3 1000 Unit Tablet] 1,000 unit PO DAILY 04/04/20 Empagliflozin [Jardiance] 10 mg PO DAILY 04/04/20 Folic Acid [Folvite 1 mg Tablet] 1 mg PO MOTUWETHFRSA 04/04/20 Insulin Detemir [Levemir Insulin 100 units/mL Insulin Pen] 0 units SQ .PERSLIDINGSCALE 04/04/20 Methotrexate Sodium [Rheumatrex 2.5 mg Tablet] 10 mg PO CRANE 04/04/20 Allergies/Adverse Reactions: No Known Allergies Allergy (Verified 12/12/15 09:51) Review of Systems Constitutional: ABSENT: fever(s), night sweats Cardiovascular: ABSENT: chest pain, dyspnea on exertion, orthropnea Respiratory: ABSENT: dyspnea Gastrointestinal: PRESENT: abdominal pain, nausea, vomiting Genitourinary: ABSENT: dysuria, hematuria Neurological: ABSENT: abnormal gait, memory loss, paresthesias, tingling, weakness Physical Exam Vital Signs: Temp Pulse Resp BP Pulse Ox 97.5 F 92 13 125/71 93 04/04/20 15:14 04/04/20 15:14 04/04/20 15:14 04/04/20 15:14 04/04/20 15:14 Intake & Output 04/03/20 04/04/20 04/05/20 06:59 06:59 06:59 Weight 62.7 kg General appearance: PRESENT: no acute distress, thin - ill looking Head exam: PRESENT: atraumatic, normocephalic Eye exam: PRESENT: conjunctiva pink, EOMI, PERRLA. ABSENT: scleral icterus Ear exam: PRESENT: normal external ear exam Mouth exam: PRESENT: dry mucosa, tongue midline Neck exam: ABSENT: JVD, lymphadenopathy, thyromegaly Respiratory exam: PRESENT: clear to auscultation jacklyn. ABSENT: rales, rhonchi, wheezes Cardiovascular exam: PRESENT: RRR. ABSENT: diastolic murmur, rubs, systolic murmur Pulses: PRESENT: normal dorsalis pedis pul Vascular exam: PRESENT: normal capillary refill GI/Abdominal exam: PRESENT: normal bowel sounds, soft. ABSENT: distended, guarding, mass, organolmegaly, rebound, tenderness Rectal exam: PRESENT: deferred Extremities exam: PRESENT: full ROM. ABSENT: calf tenderness, clubbing, pedal edema Neurological exam: PRESENT: alert, awake, oriented to person, oriented to place, oriented to time, oriented to situation, CN II-XII grossly intact. ABSENT: motor sensory deficit Psychiatric exam: PRESENT: appropriate affect, normal mood. ABSENT: homicidal ideation, suicidal ideation Skin exam: PRESENT: dry, intact, warm. ABSENT: cyanosis, rash Results Laboratory Results: Pending 04/05/20 04:41 04/05/20 04:41 MCV 84 fl (80-97) 04/05/20 04:41 MCH 26.9 pg (27.0-33.4) L 04/05/20 04:41 MCHC 31.9 g/dL (32.0-36.0) L 04/05/20 04:41 RDW 18.7 % (11.5-14.0) H 04/05/20 04:41 Seg Neutrophils % 88.8 % (42-78) H 04/05/20 04:41 Chloride 102 mmol/L (98-107) 04/05/20 04:41 Carbon Dioxide 19 mmol/L (22-30) L 04/05/20 04:41 Anion Gap 14 (5-19) 04/05/20 04:41 Est GFR ( Amer) 58 (>60) L 04/05/20 04:41 Glucose 227 mg/dL (75-110) H 04/05/20 04:41 Calcium 10.4 mg/dL (8.4-10.2) H 04/05/20 04:41 Magnesium 2.2 mg/dL (1.6-2.3) 04/04/20 18:46 Total Bilirubin 0.7 mg/dL (0.2-1.3) 04/04/20 18:46 AST 15 U/L (17-59) L 04/04/20 18:46 Alkaline Phosphatase 93 U/L (38-126) 04/04/20 18:46 Total Protein 5.6 g/dL (6.3-8.2) L 04/04/20 18:46 Albumin 2.5 g/dL (3.5-5.0) L 04/04/20 18:46 04/04/20 18:46 Troponin I 0.026 Impressions: Chest X-Ray 04/04/20 14:12 IMPRESSION: Chronic loculated right pleural effusion with compressive at electasis of the right lung base, stable. No acute cardiopulmonary disease. Assessment and Plan - Diagnosis (1) Metastatic lung cancer (metastasis from lung to other site) Qualifiers: Laterality: unspecified laterality Qualified Code(s): C34.90 - Malignant neoplasm of unspecified part of unspecified bronchus or lung Is this a current diagnosis for this admission?: Yes (2) Intractable nausea and vomiting Is this a current diagnosis for this admission?: Yes (3) Constipation Qualifiers: Constipation type: slow transit constipation Qualified Code(s): K59.01 - Slow transit constipation Is this a current diagnosis for this admission?: Yes - Time Time Spent with patient: 35 or more minutes Medications reviewed and adjusted accordingly: Yes Anticipated Discharge Disposition: Home, Self Care Anticipated Discharge Timeframe: within 72 hours
--- NOTE | 2020-04-04 18:25 | EKG REPORT ---
SEVERITY:- BORDERLINE ECG - SINUS RHYTHM PROBABLE LEFT ATRIAL ABNORMALITY BORDERLINE T WAVE ABNORMALITIES : Confirmed by: Henry Gibbons MD 04-Apr-2020 18:25:04
[2020-04-04 19:03] LABS: ABSOLUTE BASOPHILS # (AUTO) 0.1 10^3/uL (0.0-0.2); ABSOLUTE LYMPHOCYTES (AUTO) 1.1 10^3/uL (0.5-4.7); ABSOLUTE MONOCYTES (AUTO) 0.6 10^3/uL (0.1-1.4); ABSOLUTE NEUT (AUTO) 12.7 10^3/uL (1.7-8.2); BASOPHILS % (AUTO) 0.9 % (0-2); EOSINOPHILS % (AUTO) 0.2 % (0-6); HEMATOCRIT 39.4 % (37.9-51.0); HEMOGLOBIN 12.5 g/dL (13.5-17.0); LYMPHOCYTES % (AUTO) 7.6 % (13-45); MEAN CORPUSCULAR HEMOGLOBIN 26.6 pg (27.0-33.4); MEAN CORPUSCULAR HGB CONC 31.8 g/dL (32.0-36.0); MEAN CORPUSCULAR VOLUME 84 fl (80-97); MONOCYTES % (AUTO) 3.8 % (3-13); PLATELET COUNT 413 10^3/uL (150-450); RED BLOOD COUNT 4.71 10^6/uL (4.35-5.55); RED CELL DISTRIBUTION WIDTH 18.7 % (11.5-14.0); SEGMENTED NEUTROPHILS % (AUTO) 87.5 % (42-78); TOTAL CELLS COUNTED % (AUTO) 100 %; WHITE BLOOD COUNT 14.5 10^3/uL (4.0-10.5)
[2020-04-04 19:16] LABS: ALBUMIN 2.5 g/dL (3.5-5.0); ALKALINE PHOSPHATASE 93 U/L (38-126); ANION GAP 10 (5-19); ASPARTATE AMINO TRANSFERASE 15 U/L (17-59); BILIRUBIN,DIRECT 0.4 mg/dL (0.0-0.4); BILIRUBIN,TOTAL 0.7 mg/dL (0.2-1.3); BLOOD UREA NITROGEN 40 mg/dL (7-20); CALCIUM 9.8 mg/dL (8.4-10.2); CARBON DIOXIDE 25 mmol/L (22-30); CHLORIDE 101 mmol/L (98-107); GLUCOSE 222 mg/dL (75-110); POTASSIUM 5.5 mmol/L (3.6-5.0); TOTAL PROTEIN 5.6 g/dL (6.3-8.2)
[2020-04-04] MEDS: NORMAL SALINE 1000 ML 1,000 ML IV PRN (21:59)
[2020-04-04] MEDS: DOCUSATE SODIUM 100 MG CAPSULE PO SCH (22:51)
[2020-04-04] MEDS: OXYCODONE-ACETAMINOPHEN 5-325 MG TABLET PO PRN (23:04)
[2020-04-05] MEDS ORDERED: GLUCAGON,HUMAN RECOMB 1 MG INJ IM PRN (01:00)
[2020-04-05] MEDS ORDERED: DEXTROSE 40% GEL 15 GM TUBE X 2 PO PRN (01:00)
[2020-04-05] MEDS ORDERED: DEXTROSE 50%-WATER SYRINGE 25 GM/50 ML DOSE IV PRN (01:00)
[2020-04-05] MEDS ORDERED: DEXTROSE 50%-WATER SYRINGE 12.5 GM/25 ML DOSE IV PRN (01:00)
[2020-04-05] MEDS ORDERED: DEXTROSE 40% GEL 15 GM TUBE PO PRN (01:00)
[2020-04-05] MEDS: ACETAMINOPHEN 325 MG TABLET PO PRN ×2 (02:43→15:39)
[2020-04-05 05:21] LABS: ABSOLUTE LYMPHOCYTES (AUTO) 0.9 10^3/uL (0.5-4.7); ABSOLUTE MONOCYTES (AUTO) 0.5 10^3/uL (0.1-1.4); ABSOLUTE NEUT (AUTO) 11.6 10^3/uL (1.7-8.2); BASOPHILS % (AUTO) 0.4 % (0-2); EOSINOPHILS % (AUTO) 0.1 % (0-6); HEMATOCRIT 39.4 % (37.9-51.0); HEMOGLOBIN 12.6 g/dL (13.5-17.0); LYMPHOCYTES % (AUTO) 6.5 % (13-45); MEAN CORPUSCULAR HEMOGLOBIN 26.9 pg (27.0-33.4); MEAN CORPUSCULAR HGB CONC 31.9 g/dL (32.0-36.0); MEAN CORPUSCULAR VOLUME 84 fl (80-97); MONOCYTES % (AUTO) 4.2 % (3-13); PLATELET COUNT 438 10^3/uL (150-450); RED BLOOD COUNT 4.68 10^6/uL (4.35-5.55); RED CELL DISTRIBUTION WIDTH 18.7 % (11.5-14.0); SEGMENTED NEUTROPHILS % (AUTO) 88.8 % (42-78); TOTAL CELLS COUNTED % (AUTO) 100 %
[2020-04-05 05:36] LABS: ANION GAP 14 (5-19); BLOOD UREA NITROGEN 44 mg/dL (7-20); CALCIUM 10.4 mg/dL (8.4-10.2); CARBON DIOXIDE 19 mmol/L (22-30); CHLORIDE 102 mmol/L (98-107); GLUCOSE 227 mg/dL (75-110)
[2020-04-05 05:40] LABS: POTASSIUM 6.1 mmol/L (3.6-5.0)
[2020-04-05] MEDS ORDERED: SODIUM POLYSTYRENE SULFONATE 15 GM/60 ML PO ONE ×2 (06:00→09:00)
[2020-04-05] MEDS: ONDANSETRON HCL INJ/PF 4 MG/2 ML SDV IV PRN (06:26)
[2020-04-05] MEDS: OXYCODONE-ACETAMINOPHEN 5-325 MG TABLET PO PRN ×4 (06:29→20:05)
[2020-04-05] MEDS: METOCLOPRAMIDE HCL 10 MG TABLET PO SCH ×4 (08:23→21:43)
[2020-04-05] MEDS: INSULIN LISPRO 100 UNIT/ML 3 ML VIAL SUBCUT SCH ×4 (08:23→21:43)
--- NOTE | 2020-04-05 08:45 | PDOC CONSULTATION ---
Consultation Consult Date: 04/05/20 Provider Consulted: MANNIE MCNEIL Consult reason:: Hematology/Oncology consultation was requested for patient with metastatic lung cancer and vomiting. History of Present Illness Admission Date/PCP: 04/04/20 16:04 RIKA MILLAN History of Present Illness: HOLLI VALDEZ JR is a 69 year old male who was recently diagnosed with non- small cell lung cancer - extensive stage and plan was to start chemo this week after port was placed. However, patient presented to the ED 2 days ago with increased abdominal pain, weakness and constipation. He was given pain meds, laxative, but continued to have pain and vomiting. He was admitted for further treatment. Today, he states that enema last night and lactulose yesterday have not yet been effective. He has receive further pain medication and zofran as well. No dyspnea, but poor appetite. Past Medical History Cardiac Medical History: Reports: Hypertension, Peripheral Vascular Disease Pulmonary Medical History: Reports: Chronic Obstructive Pulmonary Disease (COPD) Denies: Tuberculosis Endocrine Medical History: Reports: Diabetes Mellitus Type 2 Musculoskeltal Medical History: Reports: Arthritis Psychiatric Medical History: Denies: Depression Past Surgical History Past Surgical History: Reports: Vascular Surgery - stents Social History Lives with: Spouse/Significant other Smoking Status: Former Smoker Frequency of Alcohol Use: None Hx Recreational Drug Use: No Drugs: None Hx Prescription Drug Abuse: No Past Social History Note: 3 kids. - Advance Directive Resuscitation Status: Full Code Family History Family History: Reviewed & Not Pertinent Parental Family History Reviewed: Yes - Mother with DM. Father with CAD. Children Family History Reviewed: No - Niece with neuroblastoma Sibling(s) Family History Reviewed.: Yes Medication/Allergy Home Medications: Lisinopril [Prinivil 10 mg Tablet] 2.5 mg PO DAILY 06/02/12 Prednisone 5 mg PO DAILY 06/06/12 Ascorbic Acid [Vitamin C 500 mg Tablet] 500 mg PO DAILY 04/04/20 Aspirin [Adult Low Dose Aspirin EC] 81 mg PO DAILY 04/04/20 Atorvastatin Calcium [Lipitor 20 mg Tablet] 20 mg PO QHS 04/04/20 Cholecalciferol (Vitamin D3) [Vitamin D3 1000 Unit Tablet] 1,000 unit PO DAILY 04/04/20 Empagliflozin [Jardiance] 10 mg PO DAILY 04/04/20 Folic Acid [Folvite 1 mg Tablet] 1 mg PO MOTUWETHFRSA 04/04/20 Insulin Detemir [Levemir Insulin 100 units/mL Insulin Pen] 0 units SQ .PERSLIDINGSCALE 04/04/20 Methotrexate Sodium [Rheumatrex 2.5 mg Tablet] 10 mg PO CRANE 04/04/20 Allergies/Adverse Reactions: No Known Allergies Allergy (Verified 12/12/15 09:51) Review of Systems Constitutional: ABSENT: fever(s), headache(s) Eyes: ABSENT: visual disturbances Ears: ABSENT: hearing changes Nose, Mouth, and Throat: ABSENT: sore throat Cardiovascular: ABSENT: chest pain Respiratory: ABSENT: dyspnea Gastrointestinal: PRESENT: abdominal pain, constipation, nausea, vomiting Genitourinary: ABSENT: dysuria Musculoskeletal: PRESENT: muscle weakness. ABSENT: back pain Integumentary: ABSENT: rash Neurological: PRESENT: weakness Hematologic/Lymphatic: ABSENT: easy bleeding Physical Exam Vital Signs: Temp Pulse Resp BP Pulse Ox 97.7 F 98 18 104/56 L 79 L 04/05/20 07:46 04/05/20 07:46 04/05/20 07:46 04/05/20 07:46 04/05/20 07:46 Intake & Output 04/04/20 04/05/20 04/06/20 06:59 06:59 06:59 Intake Total 1480 Balance 1480 Weight 63.7 kg General appearance: PRESENT: no acute distress, thin Exam: 69 year old male. Head exam: PRESENT: normocephalic Eye exam: PRESENT: EOMI, PERRLA Mouth exam: PRESENT: moist Neck exam: ABSENT: lymphadenopathy, tenderness Respiratory exam: PRESENT: clear to auscultation jacklyn, unlabored Cardiovascular exam: PRESENT: RRR GI/Abdominal exam: PRESENT: distended, soft Extremities exam: ABSENT: pedal edema Musculoskeletal exam: PRESENT: normal inspection Neurological exam: PRESENT: alert, awake Psychiatric exam: PRESENT: appropriate affect Skin exam: PRESENT: normal color Results Laboratory Results: 04/05/20 04:41 04/05/20 04:41 04/04/20 04/04/20 04/05/20 18:46 18:46 04:41 WBC 14.5 H 13.0 H RBC 4.71 4.68 Hgb 12.5 L 12.6 L Hct 39.4 39.4 MCV 84 84 MCH 26.6 L 26.9 L MCHC 31.8 L 31.9 L RDW 18.7 H 18.7 H Plt Count 413 438 Seg Neutrophils % 87.5 H 88.8 H Sodium 135.6 L Potassium 5.5 H Chloride 101 Carbon Dioxide 25 Anion Gap 10 BUN 40 H Creatinine 1.24 Est GFR ( Amer) > 60 Glucose 222 H Calcium 9.8 Magnesium 2.2 Total Bilirubin 0.7 AST 15 L Alkaline Phosphatase 93 Total Protein 5.6 L Albumin 2.5 L 04/05/20 04:41 WBC RBC Hgb Hct MCV MCH MCHC RDW Plt Count Seg Neutrophils % Sodium 134.8 L Potassium 6.1 H* Chloride 102 Carbon Dioxide 19 L Anion Gap 14 BUN 44 H Creatinine 1.46 H Est GFR ( Amer) 58 L Glucose 227 H Calcium 10.4 H Magnesium Total Bilirubin AST Alkaline Phosphatase Total Protein Albumin 04/04/20 18:46 Troponin I 0.026 Impressions: Chest X-Ray 04/04/20 14:12 IMPRESSION: Chronic loculated right pleural effusion with compressive atelectasis of the right lung base, stable. No acute cardiopulmonary disease. Status: Image reviewed by me Assessment & Plan - Diagnosis (1) Constipation Qualifiers: Constipation type: slow transit constipation Qualified Code(s): K59.01 - Slow transit constipation Is this a current diagnosis for this admission?: Yes Plan: Will start reglan and try to avoid zofran and narcotics which may worsen the problem. Consider ativan for abdominal pain instead of narcotics. (2) Intractable nausea and vomiting Is this a current diagnosis for this admission?: Yes Plan: Again, reglan and laxatives. (3) Metastatic lung cancer (metastasis from lung to other site) Qualifiers: Laterality: unspecified laterality Qualified Code(s): C34.90 - Malignant neoplasm of unspecified part of unspecified bronchus or lung Is this a current diagnosis for this admission?: Yes (4) Weight loss, abnormal Is this a current diagnosis for this admission?: Yes Plan: Will add olanzapine for nausea and weight loss as well.
[2020-04-05] MEDS: DOCUSATE SODIUM 100 MG CAPSULE PO SCH ×2 (11:03→17:28)
[2020-04-05] MEDS: PANTOPRAZOLE SODIUM 40 MG VIAL IV SCH (11:03)
[2020-04-05] MEDS: NORMAL SALINE 1000 ML 1,000 ML IV PRN ×2 (11:10→21:48)
--- NOTE | 2020-04-05 12:05 | PDOC PROGRESS REPORT ---
Subjective Progress Note for:: 04/05/20 Subjective:: Patient does feel somewhat better today. He said his only had a small amount of bowel movements. There is no nausea vomiting. No chest pain Reason For Visit: INTRACTABLE NAUSEA AND VOMITING, MALIGNANT Physical Exam Vital Signs: Temp Pulse Resp BP Pulse Ox 97.7 F 98 18 104/56 L 79 L 04/05/20 07:46 04/05/20 07:46 04/05/20 07:46 04/05/20 07:46 04/05/20 07:46 Intake & Output 04/04/20 04/05/20 04/06/20 06:59 06:59 06:59 Intake Total 1480 989 Balance 1480 989 Weight 63.7 kg 63.7 kg General appearance: PRESENT: no acute distress, thin - Gaunt looking Head exam: PRESENT: atraumatic, normocephalic Eye exam: PRESENT: conjunctiva pink, EOMI, PERRLA. ABSENT: scleral icterus Ear exam: PRESENT: normal external ear exam Mouth exam: PRESENT: tongue midline Neck exam: ABSENT: carotid bruit, JVD, lymphadenopathy, thyromegaly Respiratory exam: PRESENT: clear to auscultation jacklyn. ABSENT: rales, rhonchi, wheezes Cardiovascular exam: PRESENT: RRR, +S1, +S2. ABSENT: diastolic murmur, rubs, systolic murmur Pulses: PRESENT: normal dorsalis pedis pul Vascular exam: PRESENT: normal capillary refill GI/Abdominal exam: PRESENT: distended, firm, normal bowel sounds. ABSENT: guarding, mass, organolmegaly, rebound, tenderness Rectal exam: PRESENT: deferred Extremities exam: PRESENT: full ROM. ABSENT: calf tenderness, clubbing, pedal edema Neurological exam: PRESENT: alert, awake, oriented to person, oriented to place, oriented to time, oriented to situation, CN II-XII grossly intact. ABSENT: motor sensory deficit Psychiatric exam: PRESENT: appropriate affect, normal mood. ABSENT: homicidal ideation, suicidal ideation Skin exam: PRESENT: dry, intact, warm. ABSENT: cyanosis, rash Results Laboratory Results: 04/05/20 04:41 04/05/20 04:41 04/04/20 04/04/20 04/05/20 18:46 18:46 04:41 WBC 14.5 H 13.0 H RBC 4.71 4.68 Hgb 12.5 L 12.6 L Hct 39.4 39.4 MCV 84 84 MCH 26.6 L 26.9 L MCHC 31.8 L 31.9 L RDW 18.7 H 18.7 H Plt Count 413 438 Seg Neutrophils % 87.5 H 88.8 H Sodium 135.6 L Potassium 5.5 H Chloride 101 Carbon Dioxide 25 Anion Gap 10 BUN 40 H Creatinine 1.24 Est GFR ( Amer) > 60 Glucose 222 H Calcium 9.8 Magnesium 2.2 Total Bilirubin 0.7 AST 15 L Alkaline Phosphatase 93 Total Protein 5.6 L Albumin 2.5 L 04/05/20 04:41 WBC RBC Hgb Hct MCV MCH MCHC RDW Plt Count Seg Neutrophils % Sodium 134.8 L Potassium 6.1 H* Chloride 102 Carbon Dioxide 19 L Anion Gap 14 BUN 44 H Creatinine 1.46 H Est GFR ( Amer) 58 L Glucose 227 H Calcium 10.4 H Magnesium Total Bilirubin AST Alkaline Phosphatase Total Protein Albumin 04/04/20 18:46 Troponin I 0.026 Impressions: Chest X-Ray 04/04/20 14:12 IMPRESSION: Chronic loculated right pleural effusion with compressive atelectasis of the right lung base, stable. No acute cardiopulmonary disease. Assessment and Plan - Diagnosis (1) Metastatic lung cancer (metastasis from lung to other site) Qualifiers: Laterality: unspecified laterality Qualified Code(s): C34.90 - Malignant neoplasm of unspecified part of unspecified bronchus or lung Is this a current diagnosis for this admission?: Yes Plan: Appreciate oncology input. Patient's chemotherapy will be on hold until physical condition improves. 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 (2) Intractable nausea and vomiting Is this a current diagnosis for this admission?: Yes Plan: This has resolved (3) Constipation Qualifiers: Constipation type: slow transit constipation Qualified Code(s): K59.01 - Slow transit constipation Is this a current diagnosis for this admission?: Yes Plan: We will continue with bowel regimen, increase his IV fluids, increase his laxatives hopefully for eventual evacuationCT scan of the abdomen from April 03 revealed small volume ascites, ill-defined areas of soft tissue attenuation suspicious for peritoneal implants, scattered air-fluid levels and moderate stoo l throughout the colon Obtain a KUB to follow-up (4) Hyperkalemia Is this a current diagnosis for this admission?: Yes Plan: Etiology of hyperkalemia unclear. Patient will be given Kayexalate. This will also help with his constipation. (5) Protein-calorie malnutrition, moderate Is this a current diagnosis for this admission?: Yes Plan: We will obtain dietitian consult. Patient intake has been poor due to his malignancy - Time Time Spent with patient: 15-24 minutes Medications reviewed and adjusted accordingly: Yes Anticipated Discharge Disposition: Home, Self Care Anticipated Discharge Timeframe: within 72 hours
[2020-04-05] MEDS ORDERED: POLYETHYLENE GLYCOL 3350 POWDER 17 GM/1 PACKET PO PRN (12:15)
--- NOTE | 2020-04-05 12:31 | RADIOLOGY REPORT (SQ) ---
EXAM DESCRIPTION: KUB/ABDOMEN (SINGLE VIEW) IMAGES COMPLETED DATE/TIME: 04/05/2020 12:24 pm REASON FOR STUDY: Constipation, ?ileus COMPARISON: None. NUMBER OF VIEWS: One view. TECHNIQUE: Supine radiographic image of the abdomen acquired. LIMITATIONS: None. FINDINGS: BOWEL GAS PATTERN: Gas pattern is nonobstructive. There is large amount of stool througho ut the colon consistent with constipation. No free air. CALCIFICATIONS: No suspicious calcifications. SOFT TISSUES: No gross mass or suggestion of organomegaly. HARDWARE: None in the abdomen. BONES: No acute fracture. No worrisome bone lesions. OTHER: Vascular stents are in place. Probable small right pleural effusion. IMPRESSION: Constipation. TECHNICAL DOCUMENTATION: JOB ID: [id number] 2010 [email or web address]- All Rights Reserved Reading location - IP/workstation name: [email or web address]
[2020-04-05] MEDS: LACTULOSE SYRUP 20 GM/30 ML UDCUP PO PRN (18:51)
[2020-04-05] MEDS: OLANZAPINE 5 MG TABLET PO SCH (21:43)
--- NOTE | 2020-04-05 22:44 | PDOC CONSULTATION ---
Consultation Consult Date: 04/05/20 Provider Consulted: LITTLE CAMPA Consult reason:: Mediport insertion History of Present Illness Admission Date/PCP: 04/04/20 16:04 RIKA MILLAN History of Present Illness: HOLLI VALDEZ JR is a 69 year old male seen in consultation at the request of oncology. The patient was scheduled to have a Mediport placed this coming week, but has been admitted for abdominal pain and constipation. He was recently diagnosed with lung cancer, and has required oxycodone recently. I believe this is the cause of his severe constipation. The patient has been given multiple laxatives and enemas, with little result. He reports abdominal pain, nausea, vomiting, and severe constipation. He denies chest pain, shortness of breath, fevers, chills, blurry vision. He does report poor appetite and fatigue. Past Medical History Cardiac Medical History: Reports: Hypertension, Peripheral Vascular Disease Pulmonary Medical History: Reports: Chronic Obstructive Pulmonary Disease (COPD) Denies: Tuberculosis Endocrine Medical History: Reports: Diabetes Mellitus Type 2 Malignancy Medical History: Reports: Lung Cancer Musculoskeltal Medical History: Reports: Arthritis Psychiatric Medical History: Denies: Depression Past Surgical History Past Surgical History: Reports: Vascular Surgery - stents Social History Lives with: Spouse/Significant other Smoking Status: Former Smoker Frequency of Alcohol Use: None Hx Recreational Drug Use: No Drugs: None Hx Prescription Drug Abuse: No - Advance Directive Resuscitation Status: Full Code Family History Family History: Reviewed & Not Pertinent Parental Family History Reviewed: Yes Children Family History Reviewed: Yes Sibling(s) Family History Reviewed.: Yes Medication/Allergy Home Medications: Lisinopril [Prinivil 10 mg Tablet] 2.5 mg PO DAILY 06/02/12 Prednisone 5 mg PO DAILY 06/06/12 Ascorbic Acid [Vitamin C 500 mg Tablet] 500 mg PO DAILY 04/04/20 Aspirin [Adult Low Dose Aspirin EC] 81 mg PO DAILY 04/04/20 Atorvastatin Calcium [Lipitor 20 mg Tablet] 20 mg PO QHS 04/04/20 Cholecalciferol (Vitamin D3) [Vitamin D3 1000 Unit Tablet] 1,000 unit PO DAILY 04/04/20 Empagliflozin [Jardiance] 10 mg PO DAILY 04/04/20 Folic Acid [Folvite 1 mg Tablet] 1 mg PO [id number] 04/04/20 Insulin Detemir [Levemir Insulin 100 units/mL Insulin Pen] 0 units SQ .PERSLIDINGSCALE 04/04/20 Methotrexate Sodium [Rheumatrex 2.5 mg Tablet] 10 mg PO CRANE 04/04/20 Allergies/Adverse Reactions: No Known Allergies Allergy (Verified 12/12/15 09:51) Review of Systems Constitutional: PRESENT: anorexia, fatigue. ABSENT: fever(s), headache(s) Ears: ABSENT: hearing changes Nose, Mouth, and Throat: ABSENT: sore throat Cardiovascular: ABSENT: chest pain Respiratory: ABSENT: cough Gastrointestinal: PRESENT: abdominal pain, bloating, constipation Genitourinary: ABSENT: dysuria Musculoskeletal: PRESENT: back pain Neurological: ABSENT: confusion, convulsions, dizziness Psychiatric: ABSENT: anxiety, depression Endocrine: ABSENT: cold intolerance, heat intolerance Hematologic/Lymphatic: ABSENT: easy bleeding, easy bruising Physical Exam Vital Signs: Temp Pulse Resp BP Pulse Ox 98.6 F 91 16 115/65 97 04/05/20 15:59 04/05/20 15:59 04/05/20 15:59 04/05/20 15:59 04/05/20 15:59 Intake & Output 04/04/20 04/05/20 04/06/20 06:59 06:59 06:59 Intake Total 1480 989 Balance 1480 989 Weight 63.7 kg 63.7 kg General appearance: PRESENT: no acute distress, cooperative Head exam: PRESENT: atraumatic, normocephalic Eye exam: PRESENT: EOMI, PERRLA. ABSENT: scleral icterus Mouth exam: PRESENT: moist, neck supple Neck exam: ABSENT: meningismus, tenderness, thyromegaly, tracheal deviation Respiratory exam: PRESENT: unlabored. ABSENT: tachypnea, wheezes Cardiovascular exam: ABSENT: tachycardia GI/Abdominal exam: PRESENT: soft. ABSENT: distended, firm, tenderness Rectal exam: PRESENT: deferred Extremities exam: ABSENT: clubbing Musculoskeletal exam: ABSENT: deformity Neurological exam: PRESENT: alert, awake, oriented to person, oriented to place, oriented to time, oriented to situation, CN II-XII grossly intact Psychiatric exam: ABSENT: agitated, anxious, depressed Focused psych exam: ABSENT: delusional Skin exam: ABSENT: cyanosis, erythema, jaundice Results Laboratory Results: 04/05/20 04:41 04/05/20 04:41 04/04/20 04/04/20 04/05/20 18:46 18:46 04:41 WBC 14.5 H 13.0 H RBC 4.71 4.68 Hgb 12.5 L 12.6 L Hct 39.4 39.4 MCV 84 84 MCH 26.6 L 26.9 L MCHC 31.8 L 31.9 L RDW 18.7 H 18.7 H Plt Count 413 438 Seg Neutrophils % 87.5 H 88.8 H Sodium 135.6 L Potassium 5.5 H Chloride 101 Carbon Dioxide 25 Anion Gap 10 BUN 40 H Creatinine 1.24 Est GFR ( Amer) > 60 Glucose 222 H Calcium 9.8 Magnesium 2.2 Total Bilirubin 0.7 AST 15 L Alkaline Phosphatase 93 Total Protein 5.6 L Albumin 2.5 L 04/05/20 04:41 WBC RBC Hgb Hct MCV MCH MCHC RDW Plt Count Seg Neutrophils % Sodium 134.8 L Potassium 6.1 H* Chloride 102 Carbon Dioxide 19 L Anion Gap 14 BUN 44 H Creatinine 1.46 H Est GFR ( Amer) 58 L Glucose 227 H Calcium 10.4 H Magnesium Total Bilirubin AST Alkaline Phosphatase Total Protein Albumin 04/04/20 18:46 Troponin I 0.026 Impressions: Chest X-Ray 04/04/20 14:12 IMPRESSION: Chronic loculated right pleural effusion with compressive atelectasis of the right lung base, stable. No acute cardiopulmonary disease. KUB X-Ray 04/05/20 00:00 IMPRESSION: Constipation. Assessment & Plan - Diagnosis (1) Constipation due to pain medication Is this a current diagnosis for this admission?: Yes (2) Lung cancer Qualifiers: Laterality: right Lung location: lower lobe of lung Qualified Code(s): C34.31 - Malignant neoplasm of lower lobe, right bronchus or lung Is this a current diagnosis for this admission?: Yes - Plan Summary Plan Summary: 69-year-old male with lung cancer, in need of a Mediport for chemo administration. He has been admitted for abdominal pain and constipation. I will increase his laxatives, to assist with bowel movements. The patient appears to be stable for Mediport placement. I will check a Covid test, and plan for Mediport insertion on Wednesday. N.p.o. after midnight on Wednesday. Risk/benefits discussed, informed consent obtained, and all questions answered.
[2020-04-06] MEDS: OXYCODONE-ACETAMINOPHEN 5-325 MG TABLET PO PRN ×2 (01:56→19:30)
[2020-04-06] MEDS: ONDANSETRON HCL INJ/PF 4 MG/2 ML SDV IV PRN ×3 (05:30→21:55)
[2020-04-06] MEDS: ACETAMINOPHEN 325 MG TABLET PO PRN ×3 (06:20→22:01)
[2020-04-06] MEDS: NORMAL SALINE 1000 ML 1,000 ML IV PRN ×2 (07:58→17:57)
[2020-04-06 08:23] LABS: HEMATOCRIT 38.5 % (37.9-51.0); HEMOGLOBIN 12.3 g/dL (13.5-17.0); MEAN CORPUSCULAR HEMOGLOBIN 26.8 pg (27.0-33.4); MEAN CORPUSCULAR HGB CONC 31.9 g/dL (32.0-36.0); MEAN CORPUSCULAR VOLUME 84 fl (80-97); PLATELET COUNT 444 10^3/uL (150-450); RED BLOOD COUNT 4.57 10^6/uL (4.35-5.55); RED CELL DISTRIBUTION WIDTH 18.5 % (11.5-14.0); WHITE BLOOD COUNT 10.2 10^3/uL (4.0-10.5)
[2020-04-06 08:39] LABS: ANION GAP 14 (5-19); BLOOD UREA NITROGEN 47 mg/dL (7-20); CARBON DIOXIDE 20 mmol/L (22-30); CHLORIDE 103 mmol/L (98-107); GLUCOSE 217 mg/dL (75-110); POTASSIUM 5.9 mmol/L (3.6-5.0)
[2020-04-06 08:51] LABS: ABSOLUTE LYMPHOCYTES# (MANUAL) 0.4 10^3/uL (0.5-4.7); ABSOLUTE MONOCYTES # (MANUAL) 0.4 10^3/uL (0.1-1.4); BAND NEUTROPHILS % (MANUAL) 1 % (3-5); BASOPHILS % (MANUAL) 0 % (0-2); EOSINOPHILS % (MANUAL) 0 % (0-6); LYMPHOCYTES % (MANUAL) 4 % (13-45); MONOCYTES % (MANUAL) 4 % (3-13); SEGMENTED NEUTROPHILS % (MAN) 91 % (42-78); TOTAL CELLS COUNTED 100
[2020-04-06 08:52] LABS: ANISOCYTOSIS 2+
[2020-04-06 08:53] LABS: OVALOCYTES 1+; PLATELET CLUMPS PRESENT; PLATELET COMMENT ADEQUATE
[2020-04-06] MEDS: METOCLOPRAMIDE HCL 10 MG TABLET PO SCH ×4 (10:20→21:53)
[2020-04-06] MEDS: PANTOPRAZOLE SODIUM 40 MG VIAL IV SCH (10:24)
[2020-04-06] MEDS: INSULIN LISPRO 100 UNIT/ML 3 ML VIAL SUBCUT SCH ×4 (10:25→23:10)
[2020-04-06] MEDS: DOCUSATE SODIUM 100 MG CAPSULE PO SCH ×2 (10:36→17:54)
[2020-04-06] MEDS: POLYETHYLENE GLYCOL 3350 POWDER 17 GM/1 PACKET PO SCH ×3 (10:37→17:53)
[2020-04-06] MEDS: LACTULOSE SYRUP 20 GM/30 ML UDCUP PO PRN ×2 (10:40→23:12)
--- NOTE | 2020-04-06 12:14 | PDOC PROGRESS REPORT ---
Subjective Progress Note for:: 04/06/20 Subjective:: Patient still has not had a bowel movement over the last 24 hours. Was given some sorbitol. [place] nauseous after that. Ordered enema today. Reason For Visit: INTRACTABLE NAUSEA AND VOMITING, MALIGNANT Physical Exam Vital Signs: Temp Pulse Resp BP Pulse Ox 97.5 F 91 16 127/66 H 99 04/06/20 08:03 04/06/20 08:03 04/06/20 08:03 04/06/20 08:03 04/06/20 08:03 Intake & Output 04/05/20 04/06/20 04/07/20 06:59 06:59 05:59 Intake Total 1609 910 3753 Output Total 500 Balance 1438 279 9277 Weight 63.7 kg 63.5 kg General appearance: PRESENT: no acute distress, well-developed, well-nourished Head exam: PRESENT: atraumatic, normocephalic Eye exam: PRESENT: conjunctiva pink, EOMI, PERRLA. ABSENT: scleral icterus Ear exam: PRESENT: normal external ear exam Mouth exam: PRESENT: moist, tongue midline Neck exam: ABSENT: carotid bruit, JVD, lymphadenopathy, thyromegaly Respiratory exam: PRESENT: clear to auscultation jacklyn. ABSENT: rales, rhonchi, wheezes Cardiovascular exam: PRESENT: RRR. ABSENT: diastolic murmur, rubs, systolic murmur Pulses: PRESENT: normal dorsalis pedis pul Vascular exam: PRESENT: normal capillary refill GI/Abdominal exam: PRESENT: normal bowel sounds, soft. ABSENT: distended, guarding, mass, organolmegaly, rebound, tenderness Rectal exam: PRESENT: deferred Extremities exam: PRESENT: full ROM. ABSENT: calf tenderness, clubbing, pedal edema Neurological exam: PRESENT: alert, awake, oriented to person, oriented to place, oriented to time, oriented to situation, CN II-XII grossly intact. ABSENT: motor sensory deficit Psychiatric exam: PRESENT: appropriate affect, normal mood. ABSENT: homicidal ideation, suicidal ideation Skin exam: PRESENT: dry, intact, warm. ABSENT: cyanosis, rash Results Laboratory Results: 04/06/20 07:30 04/06/20 07:30 04/06/20 04/06/20 07:30 07:30 WBC 10.2 RBC 4.57 Hgb 12.3 L Hct 38.5 MCV 84 MCH 26.8 L MCHC 31.9 L RDW 18.5 H Plt Count 444 Seg Neutrophils % Not Reportable Sodium 137.4 Potassium 5.9 H Chloride 103 Carbon Dioxide 20 L Anion Gap 14 BUN 47 H Creatinine 1.61 H Est GFR ( Amer) 52 L Glucose 217 H Calcium 10.0 04/04/20 18:46 Troponin I 0.026 Impressions: Chest X-Ray 04/04/20 14:12 IMPRESSION: Chronic loculated right pleural effusion with compressive ate lectasis of the right lung base, stable. No acute cardiopulmonary disease. KUB X-Ray 04/05/20 00:00 IMPRESSION: Constipation. Assessment & Plan - Diagnosis (1) Constipation due to pain medication Is this a current diagnosis for this admission?: Yes Plan: Enema today, probably will need to to get moving. Continue with other medications. (2) Cancer, metastatic to liver Is this a current diagnosis for this admission?: Yes Plan: Hopeful reinitiation of therapy as an outpatient (3) Intractable nausea and vomiting Is this a current diagnosis for this admission?: Yes Plan: Continue with current antiemetics - Time Time Spent with patient: 35 or more minutes
[2020-04-06] MEDS ORDERED: NA PHOS,M-B/NA PHOS,DI-BA (ADULT) 133 ML ENEMA PR ONE (12:45)
--- NOTE | 2020-04-06 14:50 | PDOC PROGRESS REPORT ---
Subjective Progress Note for:: 04/06/20 Subjective:: Patient does feel somewhat better today. Reason For Visit: INTRACTABLE NAUSEA AND VOMITING, MALIGNANT Physical Exam Vital Signs: Temp Pulse Resp BP Pulse Ox 97.4 F 95 19 109/58 L 94 04/06/20 11:10 04/06/20 11:10 04/06/20 11:10 04/06/20 11:10 04/06/20 11:10 Intake & Output 04/05/20 04/06/20 04/07/20 06:59 06:59 05:59 Intake Total 8646 278 3469 Output Total 500 Balance 6239 532 6147 Weight 63.7 kg 63.5 kg General appearance: PRESENT: no acute distress, thin, other - ill looking Head exam: PRESENT: atraumatic Mouth exam: PRESENT: dry mucosa Respiratory exam: PRESENT: clear to auscultation jacklyn Cardiovascular exam: PRESENT: RRR, +S1, +S2 GI/Abdominal exam: PRESENT: diminished bowel sounds, distended, rigid Rectal exam: PRESENT: deferred Neurological exam: PRESENT: alert, awake, oriented to time, oriented to situation, CN II-XII grossly intact Psychiatric exam: PRESENT: appropriate affect Results Laboratory Results: 04/06/20 07:30 04/06/20 07:30 04/06/20 04/06/20 07:30 07:30 WBC 10.2 RBC 4.57 Hgb 12.3 L Hct 38.5 MCV 84 MCH 26.8 L MCHC 31.9 L RDW 18.5 H Plt Count 444 Seg Neutrophils % Not Reportable Sodium 137.4 Potassium 5.9 H Chloride 103 Carbon Dioxide 20 L Anion Gap 14 BUN 47 H Creatinine 1.61 H Est GFR ( Amer) 52 L Glucose 217 H Calcium 10.0 04/04/20 18:46 Troponin I 0.026 Impressions: Chest X-Ray 04/04/20 14:12 IMPRESSION: Chronic loculated right pleural effusion with compressive atelectasis of the right lung base, stable. No acute cardiopulmonary disease. KUB X-Ray 04/05/20 00:00 IMPRESSION: Constipation. Assessment and Plan - Diagnosis (1) Metastatic lung cancer (metastasis from lung to other site) Qualifiers: Laterality: unspecified laterality Qualified Code(s): C34.90 - Malignant neoplasm of unspecified part of unspecified bronchus or lung Is this a current diagnosis for this admission?: Yes Plan: Appreciate oncology input. Patient's chemotherapy will be on hold until physical condition improves. 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 Mediport insertion planned (2) Intractable nausea and vomiting Is this a current diagnosis for this admission?: Yes Plan: Improved (3) Constipation Qualifiers: Constipation type: slow transit constipation Qualified Code(s): K59.01 - Slow transit constipation Is this a current diagnosis for this admission?: Yes Plan: We will continue with bowel regimen, increase his IV fluids, increase his laxatives hopefully for eventual evacuationCT scan of the abdomen from April 03 revealed small volume ascites, ill-defined areas of soft tissue attenuation suspicious for peritoneal implants, scattered air-fluid levels and moderate stool throughout the colon Obtain a KUB to follow-up 04/06 Continue with bowel regimen. (4) Hyperkalemia Is this a current diagnosis for this admission?: Yes (5) Protein-calorie malnutrition, moderate Is this a current diagnosis for this admission?: Yes Plan: We will obtain dietitian consult once he is able to eat. Patient intake has been poor due to his malignancy - Plan Summary Summary: Mediport insertion on Wednesdayatient remains hyperkalemic. He has received 60 g of Kayexalate still little improvement. His kidney function remains fairly stable although creatinine has crept up some. He remains acidotic. Although he had leukocytosis on admission this is slowly resolved - Time Time Spent with patient: 15-24 minutes Medications reviewed and adjusted accordingly: Yes Anticipated Discharge Disposition: Home, Self Care Anticipated Discharge Timeframe: within 72 hours
[2020-04-06] MEDS: OLANZAPINE 5 MG TABLET PO SCH (21:53)
[2020-04-06] MEDS ORDERED: CALCIUM CARBONATE 500 MG TAB.CHEW PO PRN (21:54)
[2020-04-06] MEDS ORDERED: MAG HYDROX/AL HYDROX/SIMETH SUSP 30 ML UDCUP PO PRN (21:54)
[2020-04-06] MEDS ORDERED: MAGNESIUM CITRATE 296 ML BOTTLE PO ONE (22:00)
[2020-04-06] MEDS ORDERED: MAGNESIUM CITRATE 296 ML BOTTLE ONE (22:56)
[2020-04-07] MEDS: OXYCODONE-ACETAMINOPHEN 5-325 MG TABLET PO PRN ×3 (01:40→17:53)
[2020-04-07] MEDS: NORMAL SALINE 1000 ML 1,000 ML IV PRN (02:57)
[2020-04-07] MEDS: ACETAMINOPHEN 325 MG TABLET PO PRN ×4 (04:06→20:25)
[2020-04-07] MEDS: METOCLOPRAMIDE HCL 10 MG TABLET PO SCH ×4 (07:47→22:04)
[2020-04-07] MEDS: INSULIN LISPRO 100 UNIT/ML 3 ML VIAL SUBCUT SCH ×4 (07:48→22:05)
[2020-04-07] MEDS: PANTOPRAZOLE SODIUM 40 MG VIAL IV SCH (09:28)
[2020-04-07] MEDS ORDERED: BISACODYL 10 MG SUPP.RECT PR PRN (09:39)
[2020-04-07] MEDS ORDERED: BISACODYL 5 MG TABEC PO PRN (09:39)
[2020-04-07 11:21] LABS: ANION GAP 11 (5-19); BLOOD UREA NITROGEN 46 mg/dL (7-20); CALCIUM 9.6 mg/dL (8.4-10.2); CARBON DIOXIDE 21 mmol/L (22-30); CHLORIDE 107 mmol/L (98-107); GLUCOSE 154 mg/dL (75-110); POTASSIUM 5.2 mmol/L (3.6-5.0)
[2020-04-07] MEDS: ONDANSETRON HCL INJ/PF 4 MG/2 ML SDV IV PRN ×2 (11:24→15:29)
[2020-04-07] MEDS: RINGERS SOLUTION,LACTATED 1,000 ML IV PRN (11:27)
[2020-04-07] MEDS: DOCUSATE SODIUM 100 MG CAPSULE PO SCH ×2 (11:27→17:52)
[2020-04-07] MEDS: SIMETHICONE 80 MG TAB.CHEW PO PRN ×2 (11:27→22:04)
--- NOTE | 2020-04-07 19:06 | PDOC PROGRESS REPORT ---
Subjective Subjective:: Per Previous Physician: "HOLLI VALDEZ JR is a 69 year old male Patient was seen in the emergency room yesterday for generalized weakness, diminished oral intake as well as generalized malaise. He was evaluated and sent home and he followed up with oncologist today and after evaluation he was felt that patient should come to the hospital for further treatment. Dr. Colunga actually called me to admit the patient to the hospital as a direct admission but he was diverted to the ER for unclear reasons. Patient had presented to our office with weakness and he had a bout of vomiting while in the ER otherwise they denied any previous vomiting. He has not had bowel movement for at least 3 days and prior to that it was very minimal. I am currently awaiting his blood count but when he was seen yesterday in the ER his white count was 15.2 otherwise his other labs were pretty acceptable yesterday including a urinalysis that was benign except for glucosuria. Patient was recently diagnosed with stage IV lung cancer. He is yet to start treatment. In fact he was at Dr. Hernandez office today for evaluation to start management of his cancer. He apparently had been hypotensive in his office but after giving some fluids it appears his blood pressure improved and at the time of my exam his systolic blood pressure in the ER was 125. CODE STATUS was discussed with patient and his and they affirmed that he is a full code" 04/07/2020 Patient still having some abdominal discomfort today but states that he is pa ssing some very small stools with a bit of liquid stool as well. I discussed with nursing to give the patient an enema today and reportedly this was successful in relieving a moderate amount of small stools. Patient can have an additional enema overnight if he is able to tolerate it and nursing can do this. His blood pressure is been running lower limit normal today but he seems to be asymptomatic from this and is ambulating around his room fairly well. I added Gas-X and Dulcolax today to help move his bowels as well. We will get a repeat KUB. Chloride is on the high side and I believe his probably at risk to develop hyperchloremic non-anion gap metabolic acidosis and I have switched him to LR instead. Creatinine is about the same, trend BMP. Patient had a brief run of A. fib supposedly and I asked the nurse to get an EKG. General surgery is planning to get a Mediport tomorrow. If patient improves between now and then this can proceed as scheduled. Reason For Visit: INTRACTABLE NAUSEA AND VOMITING, MALIGNANT Physical Exam Vital Signs: Temp Pulse Resp BP Pulse Ox 97.6 F 94 10 L 110/58 L 94 04/07/20 16:52 04/07/20 16:52 04/07/20 16:52 04/07/20 16:52 04/07/20 16:52 Intake & Output 04/06/20 04/07/20 04/08/20 07:59 06:59 06:59 Intake Total 900 Output Total Balance 900 Weight Exam: General appearance: PRESENT: no acute distress, well-developed, well-nourished, chronically ill-appearing and uncomfortable Head exam: PRESENT: atraumatic, normocephalic Eye exam: PRESENT: conjunctiva pink. ABSENT: scleral icterus Mouth exam: PRESENT: moist Respiratory exam: PRESENT: clear to auscultation jacklyn. ABSENT: rales, rhonchi, wheezes Cardiovascular exam: PRESENT: RRR. ABSENT: diastolic murmur, rubs, systolic murmur GI/Abdominal exam: PRESENT: normal bowel sounds, somewhat firm and distended, mild diffuse tenderness ABSENT: guarding, mass, organolmegaly, rebound Neurological exam: PRESENT: alert, awake, oriented to person, oriented to place, oriented to time, oriented to situation Psychiatric exam: PRESENT: appropriate affect, normal mood Skin exam: PRESENT: dry, intact, warm Results Laboratory Results: 04/06/20 07:30 04/07/20 10:50 04/07/20 10:50 Sodium 139.2 Potassium 5.2 H Chloride 107 Carbon Dioxide 21 L Anion Gap 11 BUN 46 H Creatinine 1.62 H Est GFR ( Amer) 51 L Glucose 154 H Calcium 9.6 04/04/20 18:46 Troponin I 0.026 Impressions: Chest X-Ray 04/04/20 14:12 IMPRESSION: Chronic loculated right pleural effusion with compressive atelecta sis of the right lung base, stable. No acute cardiopulmonary disease. KUB X-Ray 04/05/20 00:00 IMPRESSION: Constipation. Assessment and Plan - Diagnosis (1) Cancer, metastatic to liver Is this a current diagnosis for this admission?: Yes (2) Constipation Qualifiers: Constipation type: slow transit constipation Qualified Code(s): K59.01 - Slow transit constipation Is this a current diagnosis for this admission?: Yes (3) Constipation due to pain medication Is this a current diagnosis for this admission?: Yes (4) Hyperkalemia Is this a current diagnosis for this admission?: Yes (5) Intractable nausea and vomiting Is this a current diagnosis for this admission?: Yes (6) Metastatic lung cancer (metastasis from lung to other site) Qualifiers: Laterality: unspecified laterality Qualified Code(s): C34.90 - Malignant neoplasm of unspecified part of unspecified bronchus or lung Is this a current diagnosis for this admission?: Yes (7) Protein-calorie malnutrition, moderate Is this a current diagnosis for this admission?: Yes (8) Ascites of liver Is this a current diagnosis for this admission?: Yes (9) Lung cancer Qualifiers: Laterality: right Lung location: lower lobe of lung Qualified Code(s): C34.31 - Malignant neoplasm of lower lobe, right bronchus or lung Is this a current diagnosis for this admission?: Yes (10) Weight loss, abnormal Is this a current diagnosis for this admission?: Yes - Plan Summary Summary: Per Previous Physicia (1) Metastatic lung cancer (metastasis from lung to other site) Qualifiers: Laterality: unspecified laterality Qualified Code(s): C34.90 - Malignant neoplasm of unspecified part of unspecified bronchus or lung Per Previous Physician: "Appreciate oncology input. Patient's chemotherapy will be on hold until physical condition improves. 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 Mediport insertion planned" Oncology consulted, following (2) Intractable nausea and vomiting Is this a current diagnosis for this admission?: Yes Plan: Resolved (3) Constipation Qualifiers: Constipation type: slow transit constipation Qualified Code(s): K59.01 - Slow transit constipation Per Previous Physician: "We will continue with bowel regimen, increase his IV fluids, increase his laxatives hopefully for eventual evacuationCT scan of the abdomen from April 03 revealed small volume ascites, ill-defined areas of soft tissue attenuation suspicious for peritoneal implants, scattered air-fluid levels and moderate stool throughout the colon Obtain a KUB to follow-up 04/06 Continue with bowel regimen." Enema on 04/07 with mild to moderate amount of stools, repeat enema as needed Dulcolax started KUB Consider CT abdomen/pelvis Per patient, he has previously required Relistor to resolve his constipation (4) Hyperkalemia Is this a current diagnosis for this admission?: Yes Improving with IV fluids (5) Protein-calorie malnutrition, moderate Is this a current diagnosis for this admission?: Yes Plan: Per Previous Physician: "We will obtain dietitian consult once he is able to eat. Patient intake has been poor due to his malignancy" - Time Time Spent with patient: 25-34 minutes Medications reviewed and adjusted accordingly: Yes Anticipated Discharge Disposition: Long-Term Facility Anticipated Discharge Timeframe: within 72 hours - Inpatient Certification Based on my medical assessment, after consideration of the patient's comorbidities, presenting symptoms, or acuity I expect that the services needed warrant INPATIENT care.: Yes I certify that my determination is in accordance with my understanding of Medicare's requirements for reasonable and necessary INPATIENT services [42 CFR 412.3e].: Yes Medical Necessity: Significant Comorbidiites Make Outpatient Treatment Too Risky, Need Close Monitoring Due to Risk of Patient Decompensation, Need For IV Fluids, Need for Pain Control, Risk of Complication if Not Cared For in Hospital, Risk of Diagnosis Which Will Require Inpatient Eval/Care/Monitoring
[2020-04-07] MEDS: POLYETHYLENE GLYCOL 3350 POWDER 17 GM/1 PACKET PO SCH (19:49)
[2020-04-07] MEDS: OLANZAPINE 5 MG TABLET PO SCH (22:04)
--- NOTE | 2020-04-07 23:14 | RADIOLOGY REPORT (SQ) ---
EXAM DESCRIPTION: Single view of the abdomen CLINICAL HISTORY: 69 years Male, constipation, possible obstruction COMPARISON: Single view of the abdomen April 05, 2020 FINDINGS: Bilateral iliac stents are in place. These are unchanged. Moderate stool is noted throughout the colon from the rectum to the cecum. When compared to the previous exam the volume of stool in the left colon has diminished but there is persistent and unchanged stool in the right colon and transverse colon. Shortness distention of multiple bowel loops are seen which are nonspecific. IMPRESSION: Improvement in volume of stool in the rectal vault and left colon. There is persistent stool in the right colon and transverse colon. Bowel gas pattern is nonspecific.
[2020-04-08] MEDS: OXYCODONE-ACETAMINOPHEN 5-325 MG TABLET PO PRN (00:47)
[2020-04-08] MEDS: RINGERS SOLUTION,LACTATED 1,000 ML IV PRN (00:56)
[2020-04-08 05:53] LABS: ANION GAP 14 (5-19); BLOOD UREA NITROGEN 54 mg/dL (7-20); CALCIUM 9.9 mg/dL (8.4-10.2); CARBON DIOXIDE 18 mmol/L (22-30); CHLORIDE 105 mmol/L (98-107); GLUCOSE 184 mg/dL (75-110)
[2020-04-08 05:56] LABS: POTASSIUM 6.2 mmol/L (3.6-5.0)
[2020-04-08] MEDS ORDERED: SODIUM POLYSTYRENE SULFONATE 15 GM/60 ML PR ONE (06:15)
--- NOTE | 2020-04-08 06:27 | EKG REPORT ---
SEVERITY:- ABNORMAL ECG - SINUS TACHYCARDIA PROBABLE LEFT ATRIAL ABNORMALITY LOW VOLTAGE IN FRONTAL LEADS NONSPECIFIC T ABNORMALITIES, DIFFUSE LEADS : Confirmed by: Henry Gibbons MD 08-Apr-2020 06:26:57
--- NOTE | 2020-04-08 07:54 | Progress Note ---
Provider Note Provider Note: Case discussed this morning with Dr. Moss. Patient overall has poor prognosis. She wishes to reevaluate the patient and discussed options with them. We will hold off on Mediport for now. Surgery will continue to follow peripherally. Please renotify when Mediport is indicated/needed.
[2020-04-08] MEDS ORDERED: ALBUTEROL SULFATE 0.083% NEB 2.5 MG/3 ML AMPUL NEB ONE (08:00)
[2020-04-08] MEDS ORDERED: FUROSEMIDE INJ/PF 20 MG/2 ML SDV IV ONE (08:45)
--- NOTE | 2020-04-08 08:56 | PDOC PROGRESS REPORT ---
Subjective Progress Note for:: 04/08/20 Subjective:: Patient states that he is feeling worse. He is in moderate respiratory distress, very restless, and pulling off his clothes. Nurses report his potassium was again high and he was given another dose of lactulose. He has had very little bowel output and states that he is still not able to eat. Reason For Visit: INTRACTABLE NAUSEA AND VOMITING, MALIGNANT Physical Exam Vital Signs: Temp Pulse Resp BP Pulse Ox 97.6 F 95 20 95/67 L 98 04/08/20 01:02 04/08/20 08:15 04/08/20 08:15 04/08/20 01:02 04/08/20 08:15 Intake & Output 04/07/20 04/08/20 04/09/20 06:59 06:59 06:59 Intake Total 1900 Balance 1900 Weight 70 kg General appearance: PRESENT: other - oserate respiratory distress. Head exam: PRESENT: normocephalic Eye exam: PRESENT: EOMI Respiratory exam: PRESENT: wheezes Cardiovascular exam: PRESENT: RRR GI/Abdominal exam: PRESENT: firm, rigid. ABSENT: tenderness Extremities exam: ABSENT: pedal edema Neurological exam: PRESENT: awake, oriented to person. ABSENT: oriented to time, oriented to situation Focused psych exam: PRESENT: restlessness Skin exam: PRESENT: normal color Results Laboratory Results: 04/06/20 07:30 04/08/20 05:19 04/07/20 04/08/20 10:50 05:19 Sodium 139.2 137.1 Potassium 5.2 H 6.2 H* D Chloride 107 105 Carbon Dioxide 21 L 18 L Anion Gap 11 14 BUN 46 H 54 H Creatinine 1.62 H 2.08 H Est GFR ( Amer) 51 L 38 L Glucose 154 H 184 H Calcium 9.6 9.9 04/04/20 18:46 Troponin I 0.026 Impressions: Chest X-Ray 04/04/20 14:12 IMPRESSION: Chronic loculated right pleural effusion with compressive atelectasis of the right lung base, stable. No acute cardiopulmonary disease. KUB X-Ray 04/07/20 00:00 IMPRESSION: Improvement in volume of stool in the rectal vault and left colon. There is persistent stool in the right colon and transverse colon. Bowel gas pattern is nonspecific. Assessment & Plan - Diagnosis (1) Constipation Qualifiers: Constipation type: slow transit constipation Qualified Code(s): K59.01 - Slow transit constipation Is this a current diagnosis for this admission?: Yes (2) Intractable nausea and vomiting Is this a current diagnosis for this admission?: Yes (3) Metastatic lung cancer (metastasis from lung to other site) Qualifiers: Laterality: unspecified laterality Qualified Code(s): C34.90 - Malignant neoplasm of unspecified part of unspecified bronchus or lung Is this a current diagnosis for this admission?: Yes Plan: I spoke with patient's in detail. She agrees that patient has gotten worse over the weekend instead of better. She agrees that he will not be strong enough to start any chemo. We discussed discharge home today with Hospice services. She is in agreement with this plan. I have ordered Neb treatment for the breathing. However, will NOT transfer him to ICU or escalate level of care. I have spoken with both Dr. Bee and Dr. Wren. I will cancel the port placement and try to make arrangements for Hospice services at home [facility]. (4) Weight loss, abnormal Is this a current diagnosis for this admission?: Yes - Time Time Spent with patient: 15-24 minutes
[2020-04-08 09:04] LABS: ARTERIAL BLOOD BASE EXCESS -9.3 mmol/L; ARTERIAL BLOOD H2CO3 1.77 mmol/L (1.05-1.35); ARTERIAL BLOOD HCO3 19.8 mmol/L (20-24); ARTERIAL BLOOD O2 SATURATION 95.7 % (94-98); ARTERIAL BLOOD PCO2 58.9 mmHg (35-45); ARTERIAL BLOOD PO2 102.1 mmHg (80-100); ARTERIAL BLOOD TOTAL CO2 21.6 mmol/L (23-27)
[2020-04-08] MEDS: METOCLOPRAMIDE HCL 10 MG TABLET PO SCH (09:04)
[2020-04-08 09:05] LABS: ARTERIAL BLOOD FIO2 50%
[2020-04-08 09:07] LABS: ARTERIAL BLOOD PH 7.15 (7.35-7.45)
[2020-04-08] MEDS ORDERED: HYDROMORPHONE HCL INJ/PF 2 MG/ML AMPULE IV PRN ×2 (09:16)
--- NOTE | 2020-04-08 09:41 | EKG REPORT ---
SEVERITY:- ABNORMAL ECG - SINUS RHYTHM NONSPECIFIC T ABNORMALITIES, ANT-LAT LEADS : Confirmed by: Tyrell Mckeon MD 08-Apr-2020 09:41:10
[2020-04-08] MEDS ORDERED: LORAZEPAM INJ 2 MG/1 ML VIAL IV PRN (09:56)
[2020-04-08] MEDS: DOCUSATE SODIUM 100 MG CAPSULE PO SCH ×2 (10:58→18:39)
[2020-04-08] MEDS: HYDROMORPHONE HCL INJ/PF 2 MG/ML AMPULE IV PRN ×3 (13:13→19:55)
--- NOTE | 2020-04-08 14:24 | PDOC DISCHARGE SUMMARY ---
Impression - Admit/DC Date/PCP Admission Date/Primary Care Provider: 04/04/20 16:04 RIKA MILLAN Discharge Date: 04/08/20 - Discharge Diagnosis (1) Cancer, metastatic to liver Is this a current diagnosis for this admission?: Yes (2) Constipation Is this a current diagnosis for this admission?: Yes (3) Constipation due to pain medication Is this a current diagnosis for this admission?: Yes (4) Hyperkalemia Is this a current diagnosis for this admission?: Yes (5) Intractable nausea and vomiting Is this a current diagnosis for this admission?: Yes (6) Metastatic lung cancer (metastasis from lung to other site) Is this a current diagnosis for this admission?: Yes (7) Protein-calorie malnutrition, moderate Is this a current diagnosis for this admission?: Yes (8) Ascites of liver Is this a current diagnosis for this admission?: Yes (9) Lung cancer Is this a current diagnosis for this admission?: Yes (10) Weight loss, abnormal Is this a current diagnosis for this admission?: Yes - Assessment Summary: Per Previous Physician: "HOLLI AVLDEZ JR is a 69 year old male Patient was seen in the emergency room yesterday for generalized weakness, diminished oral intake as well as generalized malaise. He was evaluated and sent home and he followed up with oncologist today and after evaluation he was felt that patient should come to the hospital for further treatment. Dr. Colunga actually called me to admit the patient to the hospital as a direct admission but he was diverted to the ER for unclear reasons. Patient had presented to our office with weakness and he had a bout of vomiting while in the ER otherwise they denied any previous vomiting. He has not had bowel movement for at least 3 days and prior to that it was very minimal. I am currently awaiting his blood count but when he was seen yesterday in the ER his white count was 15.2 otherwise his other labs were pretty acceptable yesterday including a urinalysis that was benign except for glucosuria. Patient was recently diagnosed with stage IV lung cancer. He is yet to start treatment. In fact he was at Dr. Hernandez office today for evaluation to start management of his cancer. He apparently had been hypotensive in his office but after giving some fluids it appears his blood pressure improved and at the time of my exam his systolic blood pressure in the ER was 125. CODE STATUS was discussed with patient and his and they affirmed that he is a full code" 04/07/2020 Patient still having some abdominal discomfort today but states that he is passing some very small stools with a bit of liquid stool as well. I discussed with nursing to give the patient an enema today and reportedly this was successful in relieving a moderate amount of small stools. Patient can have an additional enema overnight if he is able to tolerate it and nursing can do this. His blood pressure is been running lower limit normal today but he seems to be asymptomatic from this and is ambulating around his room fairly well. I added Gas-X and Dulcolax today to help move his bowels as well. We will get a repeat KUB. Chloride is on the high side and I believe his probably at risk to develop hyperchloremic non-anion gap metabolic acidosis and I have switched him to LR instead. Creatinine is about the same, trend BMP. Patient had a brief run of A. fib supposedly and I asked the nurse to get an EKG. General surgery is planning to get a Mediport tomorrow. If patient improves between now and then this can proceed as scheduled. Patient will be discharged home with hospice. 3 day Rx of pain/comfort meds pro vided. Hospice to give additional meds as indicated. (1) Metastatic lung cancer (metastasis from lung to other site) Qualifiers: Laterality: unspecified laterality Qualified Code(s): C34.90 - Malignant neoplasm of unspecified part of unspecified bronchus or lung Per Previous Physician: "Appreciate oncology input. Patient's chemotherapy will be on hold until physical condition improves. 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 Mediport insertion planned" Oncology consulted, following; family in agreement with hospice -comfort measures (2) Intractable nausea and vomiting Is this a current diagnosis for this admission?: Yes Plan: Resolved (3) Constipation Qualifiers: Constipation type: slow transit constipation Qualified Code(s): K59.01 - Slow transit constipation Per Previous Physician: "We will continue with bowel regimen, increase his IV fluids, increase his laxatives hopefully for eventual evacuationCT scan of the abdomen from April 03 revealed small volume ascites, ill-defined areas of soft tissue attenuation suspicious for peritoneal implants, scattered air-fluid levels and moderate stool throughout the colon Obtain a KUB to follow-up 10/31 Continue with bowel regimen." Enema on 04/07 with mild to moderate amount of stools, repeat enema as needed Dulcolax started KUB Consider CT abdomen/pelvis Per patient, he has previously required Relistor to resolve his constipation (4) Hyperkalemia Is this a current diagnosis for this admission?: Yes Improving with IV fluids (5) Protein-calorie malnutrition, moderate Is this a current diagnosis for this admission?: Yes Plan: Per Previous Physician: "We will obtain dietitian consult once he is able to eat. Patient intake has been poor due to his malignancy" - Additional Information Resuscitation Status: Full Code Discharge Diet: As Tolerated Discharge Activity: Bedrest Referrals: PRIYANK WALKER PA [Primary Care Provider] - Follow up as needed Prescriptions: Lorazepam [Ativan 1 mg Tablet] 1 mg PO Q4 PRN #18 tab PRN Reason: Hydromorphone HCl [Dilaudid 2 mg Tablet] 1 mg PO Q2HP PRN #18 tablet PRN Reason: Olanzapine [Zyprexa 5 mg Tablet] 5 mg PO QHS #30 tablet Home Medications: Hydromorphone HCl [Dilaudid 2 mg Tablet] 1 mg PO Q2HP PRN #18 tablet 04/08/20 Lorazepam [Ativan 1 mg Tablet] 1 mg PO Q4 PRN #18 tab 04/08/20 Olanzapine [Zyprexa 5 mg Tablet] 5 mg PO QHS #30 tablet 04/08/20 History of Present Illiness History of Present Illness: Per Previous Physician: "HOLLI VALDEZ JR is a 69 year old male Patient was seen in the emergency room yesterday for generalized weakness, diminished oral intake as well as generalized malaise. He was evaluated and sent home and he followed up with oncologist today and after evaluation he was felt that patient should come to the hospital for further treatment. Dr. Colunga actually called me to admit the patient to the hospital as a direct admission but he was diverted to the ER for unclear reasons. Patient had presented to our office with weakness and he had a bout of vomiting while in the ER otherwise they denied any previous vomiting. He has not had bowel movement for at least 3 days and prior to that it was very minimal. I am currently awaiting his blood count but when he was seen yesterday in the ER his white count was 15.2 otherwise his other labs were pretty acceptable yesterday including a urinalysis that was benign except for glucosuria. Patient was recently diagnosed with stage IV lung cancer. He is yet to start treatment. In fact he was at Dr. Hernandez office today for evaluation to start management of his cancer. He apparently had been hypotensive in his office but after giving some fluids it appears his blood pressure improved and at the time of my exam his systolic blood pressure in the ER was 125. CODE STATUS was discussed with patient and his and they affirmed that he is a full code" Physical Exam Vital Signs: Temp Pulse Resp BP Pulse Ox 97.2 F 89 17 82/49 L 98 04/08/20 08:54 04/08/20 08:54 04/08/20 08:54 04/08/20 08:54 04/08/20 08:15 Intake & Output 04/07/20 04/08/20 04/09/20 06:59 06:59 06:59 Intake Total 1900 Balance 1900 Weight 70 kg 70 kg Exam: General appearance: PRESENT: no acute distress, well-developed, well-nourished, chronically ill-appearing and uncomfortable Head exam: PRESENT: atraumatic, normocephalic Eye exam: PRESENT: conjunctiva pink. ABSENT: scleral icterus Mouth exam: PRESENT: moist Respiratory exam: PRESENT: clear to auscultation jacklyn. ABSENT: rales, rhonchi, wheezes Cardiovascular exam: PRESENT: RRR. ABSENT: diastolic murmur, rubs, systolic murmur GI/Abdominal exam: PRESENT: normal bowel sounds, somewhat firm and distended, mild diffuse tenderness ABSENT: guarding, mass, organolmegaly, rebound Neurological exam: PRESENT: alert, oriented to person; somnolent Psychiatric exam: PRESENT: appropriate affect, normal mood Skin exam: PRESENT: dry, intact, warm Results Laboratory Results: WBC 10.2 10^3/uL (4.0-10.5) 04/06/20 07:30 RBC 4.57 10^6/uL (4.35-5.55) 04/06/20 07:30 Hgb 12.3 g/dL (13.5-17.0) L 04/06/20 07:30 Hct 38.5 % (37.9-51.0) 04/06/20 07:30 MCV 84 fl (80-97) 04/06/20 07:30 MCH 26.8 pg (27.0-33.4) L 04/06/20 07:30 MCHC 31.9 g/dL (32.0-36.0) L 04/06/20 07:30 RDW 18.5 % (11.5-14.0) H 04/06/20 07:30 Plt Count 444 10^3/uL (150-450) 04/06/20 07:30 Lymph % (Auto) Not Reportable 04/06/20 07:30 Bacon % (Auto) Not Reportable 04/06/20 07:30 Eos % (Auto) Not Reportable 04/06/20 07:30 Baso % (Auto) Not Reportable 04/06/20 07:30 Absolute Neuts (auto) Not Reportable 04/06/20 07:30 Absolute Lymphs (auto) Not Reportable 04/06/20 07:30 Absolute Monos (auto) Not Reportable 04/06/20 07:30 Absolute Eos (auto) Not Reportable 04/06/20 07:30 Absolute Basos (auto) Not Reportable 04/06/20 07:30 Total Counted 100 04/06/20 07:30 Seg Neutrophils % Not Reportable 04/06/20 07:30 Seg Neuts % (Manual) 91 % (42-78) H 04/06/20 07:30 Band Neutrophils % 1 % (3-5) L 04/06/20 07:30 Lymphocytes % (Manual) 4 % (13-45) L 04/06/20 07:30 Monocytes % (Manual) 4 % (3-13) 04/06/20 07:30 Eosinophils % (Manual) 0 % (0-6) 04/06/20 07:30 Basophils % (Manual) 0 % (0-2) 04/06/20 07:30 Abs Neuts (Manual) 9.4 10^3/uL (1.7-8.2) H 04/06/20 07:30 Abs Lymphs (Manual) 0.4 10^3/uL (0.5-4.7) L 04/06/20 07:30 Abs Monocytes (Manual) 0.4 10^3/uL (0.1-1.4) 04/06/20 07:30 Absolute Eos (Manual) 0.0 10^3/uL (0.0-0.6) 04/06/20 07:30 Abs Basophils (Manual) 0.0 10^3/uL (0.0-0.2) 04/06/20 07:30 Clumped Platelets PRESENT 04/06/20 07:30 Platelet Comment ADEQUATE 04/06/20 07:30 Anisocytosis 2+ 04/06/20 07:30 Ovalocytes 1+ 04/06/20 07:30 Carbonic Acid 1.77 mmol/L (1.05-1.35) H 04/08/20 08:43 HCO3/H2CO3 Ratio 11:1 04/08/20 08:43 ABG pH 7.15 (7.35-7.45) L* 04/08/20 08:43 ABG pCO2 58.9 mmHg (35-45) H 04/08/20 08:43 ABG pO2 102.1 mmHg (80-100) H 04/08/20 08:43 ABG HCO3 19.8 mmol/L (20-24) L 04/08/20 08:43 ABG Total CO2 21.6 mmol/L (23-27) L 04/08/20 08:43 ABG O2 Saturation 95.7 % (94-98) 04/08/20 08:43 ABG Base Excess -9.3 mmol/L 04/08/20 08:43 FiO2 50% 04/08/20 08:43 Sodium 137.1 mmol/L (137-145) 04/08/20 05:19 Potassium 6.2 mmol/L (3.6-5.0) H* D 04/08/20 05:19 Chloride 105 mmol/L (98-107) 04/08/20 05:19 Carbon Dioxide 18 mmol/L (22-30) L 04/08/20 05:19 Anion Gap 14 (5-19) 04/08/20 05:19 BUN 54 mg/dL (7-20) H 04/08/20 05:19 Creatinine 2.08 mg/dL (0.52-1.25) H 04/08/20 05:19 Est GFR ( Amer) 38 (>60) L 04/08/20 05:19 Est GFR (MDRD) Non-Af 32 (>60) L 04/08/20 05:19 Glucose 184 mg/dL (75-110) H 04/08/20 05:19 POC Glucose 171 mg/dL (70-110) H 04/07/20 21:32 Calcium 9.9 mg/dL (8.4-10.2) 04/08/20 05:19 Magnesium 2.2 mg/dL (1.6-2.3) 04/04/20 18:46 Total Bilirubin 0.7 mg/dL (0.2-1.3) 04/04/20 18:46 Direct Bilirubin 0.4 mg/dL (0.0-0.4) 04/04/20 18:46 Neonat Total Bilirubin Not Reportable 04/04/20 18:46 Neonat Direct Bilirubin Not Reportable 04/04/20 18:46 Neonat Indirect Bili Not Reportable 04/04/20 18:46 AST 15 U/L (17-59) L 04/04/20 18:46 ALT 6 U/L (<50) 04/04/20 18:46 Alkaline Phosphatase 93 U/L (38-126) 04/04/20 18:46 Troponin I 0.026 ng/mL 04/04/20 18:46 Total Protein 5.6 g/dL (6.3-8.2) L 04/04/20 18:46 Albumin 2.5 g/dL (3.5-5.0) L 04/04/20 18:46 COVID-19 Source See comment 04/05/20 10:30 COVID-19 ([facility]) Not Detected (Not Detect) 04/05/20 10:30 04/04/20 18:46 Troponin I 0.026 Impressions: Chest X-Ray 04/04/20 14:12 IMPRESSION: Chronic loculated right pleural effusion with compressive atelectasis of the right lung base, stable. No acute cardiopulmonary disease. KUB X-Ray 04/05/20 00:00 IMPRESSION: Constipation. KUB X-Ray 04/07/20 00:00 IMPRESSION: Improvement in volume of stool in the rectal vault and left colon. There is persistent stool in the right colon and transverse colon. Bowel gas pattern is nonspecific. Plan Plan of Treatment: Home with hospice Time Spent: Greater than 30 Minutes Stroke Is this a Stroke Patient?: No Acute Heart Failure Is this a Heart Failure Patient?: No
[2020-04-08 17:07] VITALS: BP 90/50
--- NOTE | 2020-04-08 22:30 | Death Summary ---
Summary Date : 04/08/20 Time of :: 20:08 Autopsy: No Resuscitation Status: Comfort Measures Only Primary Care Provider: RIKA Bauer Consulting Provider: Sherman Wren MD - Final Diagnosis (1) Lung cancer Is this a current diagnosis for this admission?: Yes (2) Cancer, metastatic to liver Is this a current diagnosis for this admission?: Yes (3) Hyperkalemia Is this a current diagnosis for this admission?: Yes (4) Intractable nausea and vomiting Is this a current diagnosis for this admission?: Yes (5) Metastatic lung cancer (metastasis from lung to other site) Is this a current diagnosis for this admission?: Yes (6) Ascites of liver Is this a current diagnosis for this admission?: Yes Hospital Course:: The patient had been discharged as per Dr. Wren's discharge summary for today's date. Before he could go home to hospice care he became hypoxic and bradycardic and comfortably in bed with dignity.
[2020-04-08] MEDS: OLANZAPINE 5 MG TABLET PO SCH (23:45)
== END 2020-04-09 01:41 | disposition expired | DRG 392 ==
LOC: ER 13:55 → EH 16:04 → 5 19:02
PROVIDERS: ADMIT Internal Medicine; ATTEND Internal Medicine
DX: K59.03 Drug induced constipation (principal); E44.0 Moderate protein-calorie malnutrition; R18.8 Other ascites; C78.7 Secondary malignant neoplasm of liver and intrahepatic bile duct; C34.31 Malignant neoplasm of lower lobe, right bronchus or lung; E11.51 Type 2 diabetes mellitus with diabetic peripheral angiopathy without gangrene; E87.5 Hyperkalemia; R11.2 Nausea with vomiting, unspecified; Z51.5 Encounter for palliative care; R63.4 Abnormal weight loss; K59.01 Slow transit constipation; R09.02 Hypoxemia; R00.1 Bradycardia, unspecified; T40.2X5A Adverse effect of other opioids, initial encounter; I10 Essential (primary) hypertension; J44.9 Chronic obstructive pulmonary disease, unspecified; M19.90 Unspecified osteoarthritis, unspecified site; Z68.22 Body mass index [BMI] 22.0-22.9, adult; Z95.820 Peripheral vascular angioplasty status with implants and grafts; Z87.891 Personal history of nicotine dependence; Z83.3 Family history of diabetes mellitus; Z11.59 Encounter for screening for other viral diseases
CPT/HCPCS: 36415; 36600; 71045; 71046; 74018; 74177; 80048; 80053; 81001; 82803; 82962; 83735; 84100; 84484; 85025; 87635; 93005; 93010; 96374; 99285; C9113; C9803; J1170; J1815; J2405; J3490; J7030; J7120